=== PATIENT | male | born 1995 | race African-American/Black ===

== ENCOUNTER 2019-12-19 04:36 | Emergency (ER) | payer OTHER, SELFPAY ==
--- NOTE | ~2019-12-19 | XR_ITS ---
EXAMINATION: XR chest 2V DATE: 12/19/2019 04:59 INDICATION: Hemoptysis. TECHNIQUE: Frontal and lateral views of the chest were obtained. COMPARISON: None. FINDINGS: The chest demonstrates clear lungs without pneumonia, pleural effusion, or pneumothorax. Th e heart size is normal. IMPRESSION: 1. No acute cardiopulmonary disease. Reviewed, dictated and finalized at location A. [facility]
[2019-12-19 04:34] VITALS: BP 141/82; PULSE 71; RESP 18; TEMP 36.6; O2SAT 100
--- NOTE | 2019-12-19 04:51 | ED.GENADULT ---
HPI - General Adult General Chief complaint: Unspecified Stated complaint: COUGHING UP BLOOD History of Present Illness HPI narrative: Patient is a 24-year-old male who presents to the ER with concerns for coughing up blood. Reports this evening at work he started coughing up sputum that was streaked with blood twice. The blood was dark. Note was mixed with the sputum. He reports he has had intermittent epistaxis over the last couple weeks associate with sinus congestion mild sore throat. No fever/chills/sweats. Patient has history of MS and takes a steroid chronically, he is recently restarted his metformin couple weeks ago his blood sugar is running in the 400s at this time. He reports the lowest his blood sugars been in the last couple weeks is in the mid 200s. Otherwise he typically runs high. He does not follow-up with his primary care doctor for another month. Related Data Allergies Allergy/AdvReac Type Severity Reaction Status Date / Time No Known Allergies Allergy Verified 12/19/19 05:49 Review of Systems Review of Systems: All systems reviewed & are unremarkable except as noted in HPI and below Constitutional: Constitutional: Denies chills, Denies fever(s) and Denies weakness ENT: Reports epistaxis, Reports nasal congestion and Reports sore throat Cardiovascular: Cardiovascular: Denies chest pain Respiratory: Respiratory: Denies chest congestion, Reports cough and Denies dyspnea Gastrointestinal: Gastrointestinal: Denies abdominal pain, Denies nausea and Denies vomiting PMFSH Past Medical History Medical History (Updated 12/19/19 @ 05:49 by Gerry Foster MD) Diabetes type 2, uncontrolled Multiple sclerosis Surgical History Surgical History (Updated 12/19/19 @ 04:55 by Gerry Foster MD) No pertinent past surgical history Social History Social History (Updated 12/19/19 @ 04:56 by Gerry Foster MD) Smoking status: Current every day smoker Alcohol intake: current Exam Narrative: Exam Narrative: GENERAL: Well-appearing, well-nourished, and in no acute distress. HEAD: Normocephalic, atraumatic. ENT: Nares clear, no rhinorrhea or epistaxis. Mucous membranes moist. TMs normal bilaterally. NECK: Supple. CHEST: Clear to auscultation. No respiratory distress. HEART: Regular rate and rhythm. Normal peripheral pulses. EXTREMITIES: Normal range of motion. No edema. NEURO: Alert and oriented x3. PSYCH: Normal mood and affect. Course Vital Signs Vital signs: Vital Signs Temperature 97.8 F 12/19/19 04:34 Pulse Rate 71 12/19/19 04:34 Respiratory Rate 18 12/19/19 04:34 Blood Pressure 141/82 H 12/19/19 04:34 Pulse Oximetry 100 12/19/19 04:34 Temperature 97.8 F 12/19/19 04:34 Pulse Rate 71 12/19/19 04:34 Respiratory Rate 18 12/19/19 04:34 Blood Pressure 141/82 H 12/19/19 04:34 Pulse Oximetry 12/19/19 04:34 Medical Decision Making Vital Signs Vital Signs: Vital Signs Temperature 97.8 F 12/19/19 04:34 Pulse Rate 12/19/19 04:34 Respiratory Rate 18 12/19/19 04:34 Blood Pressure 141/82 H 12/19/19 04:34 Pulse Oximetry 12/19/19 04:34 Temperature 97.8 F 12/19/19 04:34 Pulse Rate 12/19/19 04:34 Respiratory Rate 18 12/19/19 04:34 Blood Pressure 141/82 H 12/19/19 04:34 Pulse Oximetry 12/19/19 04:34 Lab Data Result diagrams: 12/19/19 04:51 12/19/19 04:51 Labs: Lab Results 12/19/19 12/19/19 Range/Units 04:51 04:51 WBC 5.8 (4.5-10.0) K/mm3 RBC 4.66 (4.6-6.20) M/mm3 Hgb 13.4 L (14.0-18.0) g/dL Hct 40.6 L (42.0-52.0) % MCV 87.1 (80-100) fl MCH 28.8 (26-34) pg MCHC 33.0 (32-36) g/dl RDW 12.8 (11.5-14.5) % Plt Count 196 (150-375) k/mm3 MPV 12.5 H (7.4-10.4) fl Immature Gran % (Auto) 0.2 (0-0.5) % Neut % (Auto) 49.2 (45.5-73.1) % Lymph % (Auto) 39.7 (18.3-44.2) % [place] % (Auto) 8.8 H (2.6-8.5) % Eo
--- NOTE | 2019-12-19 04:56 | PC.NURSE ---
pt down to xray
[2019-12-19 05:03] LABS: Basophils Percent Auto 0.5 % (0.2-1.2); Eosinophils Absolute Auto 0.1 K/mm3 (0-0.3); Eosinophils Percent Auto 1.6 % (0-4.4); Hematocrit 40.6 % (42.0-52.0); Hemoglobin 13.4 g/dL (14.0-18.0); Immature Granulocyte Absolute 0.01 K/mm3 (0.00-0.031); Immature Granulocyte Percent A 0.2 % (0-0.5); Lymphocytes Percent Auto 39.7 % (18.3-44.2); Mean Corpuscular Hemoglobin 28.8 pg (26-34); Mean Corpuscular Volume 87.1 fl (80-100); Mean Platelet Volume 12.5 fl (7.4-10.4); Monocytes Absolute Auto 0.5 K/mm3 (0.1-0.6); Monocytes Percent Auto 8.8 % (2.6-8.5); Neutrophils Absolute Auto 2.9 K/mm3 (1.3-6.7); Neutrophils Percent Auto 49.2 % (45.5-73.1); Platelet Count Result 196 k/mm3 (150-375); Red Blood Count 4.66 M/mm3 (4.6-6.20); Red Cell Distribution Width 12.8 % (11.5-14.5); White Blood Count 5.8 K/mm3 (4.5-10.0)
[2019-12-19 05:21] LABS: Blood Urea Nitrogen 23 mg/dL (9-20); Calcium 8.7 mg/dL (8.4-10.2); Carbon Dioxide 23 mmol/L (22-30); Chloride 98 mmol/L (98-107); Estimated Glomerular Filt Rate > 60; Glucose 385 mg/dL (75-110); Potassium 4.3 mmol/L (3.4-5.0); Sodium 132 mmol/L (137-145)
[2019-12-19 06:00] VITALS: BP 138/98; PULSE 68; RESP 19; O2SAT 98
== END 2019-12-19 06:00 | disposition home or self-care (01) ==
PROVIDERS: Emergency Provider Emergency Medicine
DX: E11.65 Type 2 diabetes mellitus with hyperglycemia (principal); J06.9 Acute upper respiratory infection, unspecified; G35 Multiple sclerosis; F17.200 Nicotine dependence, unspecified, uncomplicated; Z79.84 Long term (current) use of oral hypoglycemic drugs
CPT/HCPCS: 36415; 71046; 80048; 82948; 85025; 99283

== ENCOUNTER 2024-12-17 05:47 | Emergency (ER) | payer OTHER, SELFPAY ==
[2024-12-17 05:50] VITALS: BP 101/79; PULSE 69; RESP 18; TEMP 36.4; O2SAT 100
--- OUTSIDE RECORDS SUMMARY | 2024-12-17 05:51 | XMS_ITS | Encounter Summary ---
Author Organization [facility] Care Team Providers Care Bow Maker Production Name Role Phone Mindi Smith MD Primary Care Provider Abril Winchester MD Primary Care Provider [phone] Mindi Smith MD Primary Care Provider Abril Winchester MD Primary Care Provider [phone] Encounter Details Date Type Department Care Team (Latest Contact Info) Description 09/10/2017 Orders Only [facility] CLINCONV ProviderArsalan MD [address] [place] [id number] Social History Tobacco Use Types Packs/Day Years Used Date Smoking Tobacco: Never Sex and Gender Information Value Date Recorded Sex Assigned at Not on file Legal Sex Male 8:44 PM TUBE WRAPPER Gender Identity Not on file Sexual Orientation Not on file documented as of this encounter Plan of Treatment Not on file documented as of this encounter Procedures Procedure Name Priority Date/Time Associated Diagnosis Comments AUDIOLOGY RECORD 09/10/2017 12:0 0 AM CDT documented in this encounter Results * AUDIOLOGY RECORD (09/10/2017 12:00 AM CDT) Narrative 09/10/2017 12:00 AM CDT Ordered by an unspecified provider. Historical Provider NURSING COMMUNICATION Fin al Result documented in this encounter Visit Diagnoses Not on filedocumented in this encounter Additional Health Concerns Infection Onset Date Last Indicated Resolved Time COVID: Suspected 08/14/2020 08/14/2020 08/14/2020 4:56 AM CDT Respiratory Infection (MARCUS), contact + droplet Comment:Automatically added due to negative COVID-19 result. 08/14/2020 08/14/2020 08/28/2020 3:0 5 AM CDT documented as of this encounter Care Teams Bow Maker Production Relationship Specialty Start Date End Date Mindi Smith MD [address] [place] [address] PCP - General 09/05/17 09/13/17 Abril Winchester MD [address] [place] [place] [address] PCP - General 09/14/17 09/20/17 Mindi Smith MD [address] [place] [address] PCP - General 09/21/17 11/14/17 Abril Winchester MD [address] [place] [place] [address] PCP - General 11/15/17 documented as of this encounter
--- OUTSIDE RECORDS SUMMARY | 2024-12-17 05:51 | XMS_ITS | Clinical Summary ---
Author Organization [facility] [employer] Address [address] [place] [address] Care Team Providers Care Gravity Manager Name Role Phone Louann Russ BENEFITS CONSULTANT-GREENSMAN Primary Care Provider + Source Comments [facility] [employer],non-owned Affiliates and Associated Physician Practices is amultiple site organization consisting of ambulatory clinics and hospital sitesin [place], [place], [place] and [place]. This disclosure is being madepursuant to the Care Everywhere program and may not contain all information available regarding this patient. Last updated 18.[facility] [employer] Allergies No known active allergies Medications * Be aware that medications may not be up to date on this document. Alwaysverify current medications with the patient. Medication Sig Dispensed Refills Start Date End Date Status metformin (GLUCOPHAGE) 500 MG tabletIndications:Diab etes mellitus with complication (HCC),Diabetes mellitus type 2 in obese (HCC) Take 1 Tab by mouth. Take 500 mg by mouth twice a day with food for 5 days, then increase to 1000 mg twice a day after that. 120 Tab 11 07/06/2010 Active Lancets (MICROLET) MISCIndications:Diabet es type 2, controlled (HCC) Use. Use to test blood sugar twice daily 1 Box 11 07/06/2010 Active glucose blood stripIndications:Diabe matilda type 2, controlled (HCC) Use 1 Strip. Use to test blood sugar twice daily 60 Strip 11 07/06/2010 Active Active Problems Problem Noted Date Diagnosed Date Diabetes type 2, controlled 07/06/2010 Social History Tobacco Use Types Packs/Day Years Used Date Smoking Tobacco: Never Alcohol Use Standard Drinks/Week Comments Not Asked 0 (1 standard drink = 0.6 oz pur e alcohol) Sex and Gender Information Value Date Recorded Sex Assigned at Not on file Gender Identity Not on file Sexual Orientation Not on file Last Filed Vital Signs Vital Sign Reading Time Taken Comments Blood Pressure 130/72 12/21/2010 10:16 AM ANALYTICS ASSOCIATE Pulse 74 12/21/2010 10:16 AM ANALYTICS ASSOCIATE Temperature - - Respiratory Rate 10 12/21/2010 10:1 6 AM ANALYTICS ASSOCIATE Oxygen Saturation - - Inhaled Oxygen Concentration - - Weight 176.4 kg (388 lb 14.3 oz) 2010 10:16 AM ANALYTICS ASSOCIATE Height 194.8 cm (6' 4.69 ) 12/21/2010 1 0:16 AM ANALYTICS ASSOCIATE Body Mass Index 46.49 12/21/2010 10:16 AM ANALYTICS ASSOCIATE Plan of Treatment Health Maintenance Due Date Last Done Comments HIV SCREENING 2008 HEPATITIS C SCREENING 04/09/2011 DTAP/TDAP/TD VACCINES (1 - Tdap) 2012 HEPATITIS B VACCINE (1 of 3 - 19+ 3-dose series) 2012 PNEUMOCOCCAL VACCINE (1 of 2 - PCV) 2012 COVID-19 VACCINE (1 - 2023-2 5 season) 2024 INFLUENZA VACCINE (#1) 2024 DEPRESSION SCREENING 11/12/2024 ZOSTER VACCINE (1 of 2) 2043 HIB VACCINE Aged Out No longer eligi ble based on patient's age to complete this topic HPV VACCINE Aged Out No longer eligi ble based on patient's age to complete this topic MENINGOCOCCAL (Group B) VACCINE Aged Out No longer eligible based on patient's age to complete this topic MENINGOCOCCAL VACCINE Aged Out No clement april eligible based on patient's age to complete this topic Care Teams Gravity Manager Relationship Specialty Start Date End Date Louann Russ APRN-CESAR [address] [place] [phone] PCP - General 06/29/10
--- OUTSIDE RECORDS SUMMARY | 2024-12-17 05:51 | XMS_ITS | Encounter Summary ---
Author Organization [facility] Address [address] [facility] [place] [address] Care Team Providers Care Key Filer Name Role Phone Louann Russ APRN-TRANSFER CONTROLLER Primary Care Provider + Encounter Details Date Type Department Care Team (Late st Contact Info) Description 07/15/[address] [facility] Care Pathology Lab [address] [place] [address] Mariya Bush MD [address] [place] [address] [address] Multiple sclerosis (HCC) Social History Tobacco Use Types Packs/Day Years [...] Procedure Name Priority Date/Time Associated Diagnosis Comments FLOW CYTOMETRY RITUXAN BLOOD Routine 07/15/2020 8:47 AM CDT Multiple sclerosis documented in this encounter Results * FLOW CYTOMETRY RITUXAN BLOOD (07/15/2020 8:47 AM CDT) Reason for test Multiple sclerosis 340 07/15/2020 1:40 PM CDT [facility] Client Specimen ID # [id number] 07/15/2020 1:40 PM CDT [facility] Number of Markers 7 07/15/2020 1:40 PM [facility] Flow Cytometry Results Differential Result Comment WBC Count /uL 6,500 % Lymphocytes 37 Lymphocyte Count u/L 2,405 Cell Region A: Lymphocytes Surface Marker Results % Absolute Count (cells/uL) CD3 85 2,044 CD3+CD4+ 36 866 CD3+CD8+ 48 1,154 CD4:CD8 Ratio 0.75 CD19 0 0 CD20 0 0 CD45 100 2,405 CD56 14 337 07/15/2020 1:40 PM [facility] Flow Cytometry Interpretation Testing is technical only and does not require an interpretation of results. 07/15/2020 1:40 PM [facility] Reference Range Adult Normal Reference Range Adult (> 18 years) CD3 54-84 % CD4 33-63 % CD8 12-39 % CD19 5-19 % CD56 6-26 % CD4+CD45RA+ 30-50 % CD4+CD45RO+ 17-42 % CD19+CD27+ 7-48 % CD19+CD27+IgD+ 7-29 % CD19+CD27+IgD- 3-23 % CD19+JY08-VoI+ 29-93 % % 07/15/2020 1:40 PM [facility] Disclaimer Test performed at [facility], [address] [place] [address], [id number]. This test was developed and its performance characteristics determined by the Flow Cytometry Laboratory. It has not been cleared by the [place] Food and Drug Administration (FDA). The FDA has determined that such clearance or approval is not necessary. This test is used for clinical purposes. It should not be regarded as investigational or for research. This laboratory is regulated under the Clinical Laboratory Improvement Amendments of 1998 (CLIA) as a qualified to perform high complexity clinical testing. By law [place], CD4 lymphocyte counts on patients with HIV infection must be reported by the physician to the [facility] authority. 07/15/2020 1:40 PM [facility] Embedded Images 0 1:40 PM [facility] Blood BLOOD SPECIMEN / Unknown 07/15/2020 8:47 AM CDT 07/15/2020 10:25 AM CDT Mariya Bush MD LAB - PATHOLOGY/CYTO LOGY ORDERABLES [facility] [address] [phone] documented in this encounter Visit Diagnoses Diagnosis Multiple sclerosis (HCC) Multiple sclerosis documented in this encounter Care Teams Key Filer Relationship Specialty Start Date End Date Louann Russ APRN-CESAR [address] [place] [phone] PCP - General 06/29/10 documented as of this encounter
--- OUTSIDE RECORDS SUMMARY | 2024-12-17 05:51 | XMS_ITS | Encounter Summary ---
Author Organization [facility] Address [address] [place] [address] Care Team Providers Care Set Up Technician Name Role Phone None, Provider MD Primary Care Provider Penelope walters Non-Staff, Provider Primary Care Provider Alyse juarez Encounter Details Date Type Department Care Team (Late st Contact Info) Description 08/29/2023 [employer] Message Enc [facility] Multispecialty Care - [facility] [address] [facility], [address] [place] [address] Benji Brennan MD [address] [place] [address] MRI Social History Tobacco Use Types Packs/Day Years Used Date Smoking Tobacco: Former Cigarettes 0.3 11 0 12/2008 - 12/2019 Smokeless Tobacco: Former Comments:Patient reports occ asional Alcohol Use Standard Drinks/Week Comments Yes 0 (1 standard drink = 0.6 oz pur e alcohol) social PHQ-2 Answer Date Recorded Patient Health Questionnaire-2 Score 0 05/18/2023 Sex and Gender Information Value Date Recorded Sex Assigned at Not on file Legal Sex Male 9:31 PM CDT Gender Identity Not on file Sexual Orientation Not on file documented as of this encounter Functional Status * RETIRED Are you deaf or do you have serious difficulty hearing Answer Date of Assessment Author Status No 02/07/2019 3:46 PM CDT Activ e * RETIRED Are you blind or do you have serious difficulty seeing, even when wearing glasses? Answer Date of Assessment Author Status No 02/07/2019 3:46 PM CDT Activ e * Do you have serious difficulty walking or climbing stairs? Answer Date of Assessment Author Status No 02/07/2019 3:46 PM CDT Riccardo Masters R N Active * Do you have difficulty dressing or bathing? Answer Date of Assessment Author Status No 02/07/2019 3:46 PM CDT Riccardo Masters R N Active * Because of a physical, mental, or emotional condition, do you have difficulty doing errands alone such as visiting a doctor's office or shopping? Answer Date of Assessment Author Status No 02/07/2019 3:46 PM CDT Riccardo Masters R N Active documented as of this encounter Mental Status * Because of a physical, mental, or emotional condition, do you have serious difficulty concentrating, remembering, or making decisions? Answer Entry Date Author Status No 02/07/2019 3:46 PM CDT Riccardo Masters R N Active documented in this encounter Plan of Treatment Upcoming Encounters Date Type Department Care Team (Late st Contact Info) Description 03/09/2025 8:00 AM CDT Treatment [facility] [place] [address] Benji Brennan MD [address] [place] [id number] 05/05/2025 7:40 AM CDT Telemedicine [facility] Multispecialty Care - [address], [address] [place] [address] Benji Brennan MD [address] [place] [address] documented as of this encounter Visit Diagnoses Not on filedocumented in this encounter Additional Health Concerns Infection Onset Date Last Indicated Resolved Time COVID-19 Rule Out 09/23/2024 09/23/2024 09/24/2024 12:30 AM VACATION GUIDE MRSA Comment:10/20/24 +MRSA Left finger 10/20/2024 10/20/2024 Assessment Noted Time PHQ-9 Depression Total Score: 27 02/06/2 023 9:56 AM CDT documented as of this encounter Care Teams Set Up Technician Relationship Specialty Start Date End Date None, Provider, MD PCP - General UNKNOWN PHYSICIAN SPECIALTY 03/05/23 04/16/24 Non-Staff, Provider PCP - General UNKNOWN PHYSICIAN SPECIALTY 04/17/24 documented as of this encounter
--- OUTSIDE RECORDS SUMMARY | 2024-12-17 05:51 | XMS_ITS | Encounter Summary ---
Author Organization [facility] Address [address] [place] [address] Care Team Providers Care Reference Archivist Name Role Phone None, Provider MD Primary Care Provider Penelope waletrs Non-Staff, Provider Primary Care Provider Alyse juarez Encounter Details Date Type Department Care Team (Late st Contact Info) Description 02/08/2023 MyChart Message Enc [facility] Multispecialty Care - [address], [address] [place] [address] Benji Brennan MD [address] [place] [address] MRI Social History Tobacco Use Types Packs/Day Years Used Date Smoking Tobacco: Some Days Cigarettes 0.3 11 Started: 12/2008; Last attempted to quit: 12/2019 Smokeless Tobacco: Never Comments:Patient reports occ asional Alcohol Use Standard Drinks/Week Comments Yes 0 (1 standard drink = 0.6 oz pur e alcohol) social PHQ-2 Answer Date Recorded Patient Health Questionnaire-2 Score 6 02/06/2023 Sex and Gender Information Value Date Recorded Sex Assigned at Not on file Legal Sex Male 9:31 PM CDT Gender Identity Not on file Sexual Orientation Not on file COVID-19 Exposure Response Date Recorded In the last 10 days, have yo u been in contact with someone who was confirmed or suspected to have Coronavirus/COVID-19? No / Unsure 02/06/2023 9:41 AM CDT documented as of this encounter Functional Status [...] Info) Description 03/09/2025 8:00 AM CDT Treatment [facility] [place] [address] Benji Brennan MD [address] [place] [address] 05/05/2025 7:40 AM CDT Telemedicine [facility] Multispecialty Care - [address], [address] [place] [address] Benji Brennan MD [address] [place] [address] documented as of this encounter Visit Diagnoses Not on filedocumented in this encounter Additional Health Concerns Infection Onset Date Last Indicated Resolved Time COVID-19 Rule Out 03/27/2023 03/27/2023 03/27/2023 5:24 PM CDT COVID-19 Rule Out 09/23/2024 09/23/2024 09/24/2024 12:30 AM BUILDING TECH MRSA Comment:10/20/24 +MRSA Left finger 10/20/2024 10/20/2024 Assessment Noted Time PHQ-9 Depression Total Score: 27 02/06/2 023 9:56 AM CDT documented as of this encounter Care Teams Reference Archivist Relationship Specialty Start Date End Date None, Provider, MD PCP - General UNKNOWN PHYSICIAN SPECIALTY 03/05/23 04/16/24 Non-Staff, Provider PCP - General UNKNOWN PHYSICIAN SPECIALTY 04/17/24 documented as of this encounter
--- OUTSIDE RECORDS SUMMARY | 2024-12-17 05:51 | XMS_ITS | Clinical Summary ---
Author Organization [facility] Address [address] [place] [address] Phone Care Team Providers Care Electro Plater Name Role Phone Abril Winchester MD Primary Care Provider [phone] Allergies No known active allergies Medications aspirin 81 mg tablet daily. 7 Active metoprolol XL (TOPROL-XL) 25 mg 24 hr tablet daily. 8 Active docusate sodium (COLACE) 100 mg capsuleIndicat ions:constipat ion Take 2 capsules (200 mg total) by mouth 2 (two) times a day. 120 capsule 11 8 Active Additional Information Patient not taking.Reported on 09/12/2024 sertraline (ZOLOFT) 100 mg tablet Take 1 tablet (100 mg total) by mouth daily. 30 tablet 3 9 Active Additional Information Patient not taking.Reported on 09/12/2024 acetaminophen (TylenoL) 325 mg tabletIndicati ons:PRE MED 30 MINUTES PRIOR TO INFUSION Take 650 mg by mouth operational risk analyst. Active diphenhydrAMIN E (BenadryL) 25 mg capsuleIndicat ions:PRE MED 30 MINUTES PRIOR TO INFUSION Take 2 tablet/capsule (50 mg total) by mouth operational risk analyst Active methylPREDNISo lone sodium succinate (SOLU-medrol) 125 mg injectionIndic ations:PRE MED-30 MINUTES PRIOR TO INFUSION Infuse 125 mg into a venous catheter operational risk analyst. Active ocrelizumab (OCREVUS IV)Indications :MS Infuse 600 mg into a venous catheter every 6 (six) months. MIXED IN 500CC/NS INFUSE AT: STEP 1-40ML/HR FOR 20 ML STEP 2-80 ML/HR FOR 40 ML STEP 3-120 ML/HR FOR 60 ML STEP 4-160 ML/HR FOR 80 ML STEP 5-200 ML/HR FOR 100 ML STEP 6-240 ML/HR FOR 120 ML STEP 7-280 ML/HR FOR 280 ML Active sodium chloride 0.9 %, flush, (NORMAL SALINE FLUSH INJ)Indication s:LINE PATENCY Infuse 10 mL into a venous catheter as needed (LINE PATENCY). Active ARIPiprazole (ABILIFY) 5 mg tablet Take 1 tablet (5 mg total) by mouth nightly 4 Active buPROPion XL (WELLBUTRIN XL) 300 mg 24 hr tablet Take 1 tablet (300 mg total) by mouth daily Active HYDROcodone-ac etaminophen (NORCO) 5-325 mg per tablet Take 1 tablet by mouth every 6 (six) hours as needed 4 Active hydrOXYzine (ATARAX) 10 mg tablet TAKE 1 TABLET BY MOUTH THREE TIMES DAILY DIRECTED 4 Active ibuprofen (ADVIL,MOTRIN) 600 mg tablet Take 1 tablet (600 mg total) by mouth every 6 (six) hours as needed 4 Active SEMGLEE-yfgn 100 unit/mL (3 mL) pen for injection INJECT 10 UNITS SUBCUTANEOUSLY NIGHTLY AT BEDTIME 3 Active lidocaine (ASPERCREME) 4 % adhesive patch,medicate d Place 1 patch on the skin daily 4 Active naltrexone (DEPADE) 50 mg tablet Take 1 tablet (50 mg total) by mouth daily 0 Active pen needle, diabetic 31 gauge x 3/16 needle Use daily with semglee 3 Active rosuvastatin (CRESTOR) 40 mg tablet Take 1 tablet (40 mg total) by mouth daily 4 Active traZODone (DESYREL) 50 mg tablet Take 1 tablet (50 mg total) by mouth daily 0 Active cholecalcifero l (VITAMIN D-3) 2000 unit capsule every 8 hours Active metFORMIN (GLUCOPHAGE) 1,000 mg tablet Take 1 tablet (1,000 mg total) by mouth 2 (two) times a day with meals 1 tab po bid 180 tablet 3 4 Active tirzepatide (Mounjaro) 2.5 mg/0.5 mL pen injectorIndica tions:Type 2 diabetes mellitus with hyperglycemia, with long-term current use of insulin (HCC) Inject 0.5 mL (2.5 mg total) under the skin once a week 2 mL 6 4 Active Active Problems Problem Noted Date Diagnosed Date Severe obesity 09/12/2024 Abnormal MRI 05/06/2019 Vitamin D deficiency 05/06/2019 High risk medication use 01/07/2019 Recurrent major depressive disorder, in partial remission 01/07/2019 Ataxia 09/18/2018 Multiple sclerosis 04/24/2018 Autoimmune hepatitis (CMS/HCC) 02/14/2018 Tachycardia 02/14/2018 High risk medications (not anticoagulants) long- term use 11/13/2017 Multiple sclerosis 09/24/2017 Muscle spasticity 09/14/2017 Weakness of left side of body 09/14/2017 Hyperlipidemia 09/14/2017 Hypertension 09/14/2017 Abnormal gait 09/14/2017 Obesity 09/14/2017 Dyslipidemia 09/10/2017 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 Jim as whether he has type I or type II diabetes is not entirely clear, did not follow through. Was referred for sleep study, could not be contacted to arrange this. Type 2 diabetes mellitus without complication (C MS/HCC) 02/09/2016 Hyperlipidemia 02/09/2016 Hypertension 02/09/2016 Obesity 02/09/2016 Diabetes mellitus 08/22/2013 Medical History Medical History Date Comments Anxiety disorder Anxiety - (Adde d by TW Conv) Personal history of other me ntal and behavioral disorders History of depression - (Add ed by OTILIO Conv) Anxiety Depression Hyperlipidemia Hypertension Diabetes mellitus (HCC) Sleep apnea Vitamin D deficiency 05/06/2019 Family History Medical History Relation Name Comments Multiple sclerosis Brother age 24; (Added by OTILIO [place] onv) Family history of multiple sclerosis - Diagnosed Diabetes Other Diabetes Mellit us - (Added by OTILIO Conv) Relation Name Status Comments Brother age 24; (Added by OTILIO Conv) Other Social History Tobacco Use Types Packs/Day Years Used Date Smoking Tobacco: Former Smokeless Tobacco: Never Tobacco Cessation:Counseling Given: Not Answered Alcohol Use Standard Drinks/Week Comments Yes 0 (1 standard drink = 0.6 oz pur e alcohol) occasional Sex and Gender Information Value Date Recorded Sex Assigned at Not on file 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 Gender Identity Not on file Sexual Orientation Not on file Obstetrics History Last Filed Vital Signs Vital Sign Reading Time Taken Comments Blood Pressure 120/80 09/12/2024 8:32 AM CDT Pulse 88 08/13/2020 11:36 PM CDT Temperature 36.8 ??C (98.3 ??F) 08/13/2020 1 1:36 PM CDT Respiratory Rate 18 12/26/2018 2:30 PM METALLOGRAPHY TEACHER Oxygen Saturation 96% 08/13/2020 11: 36 PM CDT Inhaled Oxygen Concentration - - Weight 139.6 kg (307 lb 12.8 oz) 09/12/2024 8:32 AM CDT Height 198.1 cm (6' 6 ) 09/12/2024 8:32 AM CDT Body Mass Index 35.57 09/12/2024 8:32 AM CDT Plan of Treatment Health Maintenance Due Date Last Done Comments Albumin Creatinine Ratio, Urine 1993 Depression Screening 1993 eGFR 1993 Foot Exam 1993 Varicella Vaccines (1 of 2 - 13+ 2-dose series) 10/22/2008 Regular Well Visit/Exam 18-64 2011 Pneumococcal vaccine <65 (2 of 2 - PCV) 07/29/2022 07/29/2021, 10/26/2017, 10/11/2015 Covid-19 Vaccine (3 - 2023- season) 2024 04/25/2021, 04/04/2021 Lipid Panel 03/04/2025 03/04/2024, 11/12, 02/08/2018, Additional history exists Hemoglobin A1C 03/12/2025 09/12/2024, 01/2017, 11/28/2016, Additional history exists Dilated Eye Exam 07/14/2025 07/14/2024 DTaP/Tdap/Td Vaccine (7 - Td or Tdap) 02/05/2029 02/05/2019, 04/28/2018, 12/07/2017, Additional history exists Hepatitis C Screening Completed 09/14/2017 Influenza Vaccine Completed 07/26/2024, , 07/29/2021, Additional history exists HPV Vaccines Aged Out No longer eligi ble based on patient's age to complete this topic Procedures Procedure Name Priority Date/Time Associated Diagnosis Comments POCT HEMOGLOBIN A1C Routine 09/12/2024 8 :35 AM CDT Type 2 diabetes mellitus with hyperglycemia, with long-term current use of insulin (HCC) LIPID PANEL Routine 03/04/2024 HEPATITIS PANEL, ACUTE After X-Ray 09/14/2017 8:48 PM CDT from Last 3 Months or Most Recently Relevant to Health Maintenance Results * (ABNORMAL) POCT hemoglobin A1c (09/12/2024 8:35 AM CDT) Hemoglobin A1C, POC 8.5 4.0 - 5.6 % Blood 09/12/2024 8:35 AM CDT Yuki Castellanos DO POINT OF CARE TEST ORDERABL ES Final Result * (ABNORMAL) Lipid panel (03/04/2024) SCRIBED Cholesterol, Total 218(A) 0 - 200 EXTERNAL LAB SCRIBED HDL 43(A) >or= - 40 EXTERNAL LAB SCRIBED LDL 147(A) 0 - 100 EXTERNAL LAB SCRIBED Triglycerides 149 0 - 150 EXTERNAL LAB Blood 03/04/2024 Historical Provider LAB BLOOD ORDERABLES Shae l Result EXTERNAL LAB * Hepatitis panel, acute (09/14/2017 8:48 PM CDT) Hep A IgM Nonreactive Nonreactive [facility] Comment: Interpretive Data If test is reported as GRAYZONE, new sample should be drawn in two weeks for testing. Current interpretive data was last revised on 2016. Hep B core IgM Nonreactive Nonreactive [facility] Comment: Interpretive Data If test is reported as GRAYZONE, new sample should be drawn for testing. Current interpretive data was last revised on 2016. Hep C Ab Nonreactive Nonreactive [facility] Comment: Interpretive Data Positive and greyzone results should be confirmed by a molecular method. If positive or greyzone, a second separately collected sample should be submitted for Hepatitis C Virus RNA. Detection and Quantitation by Real-Time Reverse Wire Galvanizer-PCR.Current Interpretive data was last revised on 2017. HepBsAg Nonreactive Nonreactive [facility] Blood specimen (specimen) 09/14/2017 8:48 PM CDT 09/14/2017 9:03 PM CDT Donavan Borja MD PhD LAB MICROBIOLOGY - GENE RAL ORDERABLES Edited Result - Final [facility] [place] [address] from Last 3 Months or Most Recently Relevant to Health Maintenance Insurance [facility] [employer]ICE PLUS [facility] H[employer]/PPO Address: [address] [address] [place] [address] [employer] Care Teams Electro Plater Relationship Specialty Start Date End Date Abril Winchester MD [address] [place] [address] PCP - General 11/15/17
--- OUTSIDE RECORDS SUMMARY | 2024-12-17 05:51 | XMS_ITS | Encounter Summary ---
Author Organization [facility] Address [address] [place] [address] Care Team Providers Care Feed In Worker Name Role Phone Ary Conner DO Primary Care Provider [phone] None, Provider Primary Care Provider Unavaila selena Non-Staff, Provider Primary Care Provider Alyse juarez Encounter Details Date Type Department Care Team (Late st Contact Info) Description 02/06/2023 Therapy Plan [facility] [place] [address] Benji Brennan MD [address] [place] [address] Social History Tobacco Use Types Packs/Day Years [...] Info) Description 03/09/2025 8:00 AM CDT Treatment [facility] [place] [address] Benji Brennan MD [address] [place] [address] 05/05/2025 7:40 AM CDT Telemedicine [facility] Multispecialty Care - [address], [address] [place] [address] Benji Brennan MD [address] [place] [address] documented as of this encounter Visit Diagnoses Diagnosis Relapsing remitting multiple sclerosis ([facility])- Primary Multiple sclerosis MS (multiple sclerosis) ([facility]) Multiple sclerosis MS (multiple sclerosis) ([facility])- Primary Multiple sclerosis documented in this encounter Additional Health Concerns Infection Onset Date Last Indicated Resolved Time COVID-19 Rule Out 03/27/2023 03/27/2023 03/27/2023 5:24 PM CDT COVID-19 Rule Out 09/23/2024 09/23/2024 09/24/2024 12:30 AM HUMAN SERVICES PROGRAM SPECIALIST MRSA Comment:10/20/24 +MRSA Left finger 10/20/2024 10/20/2024 Assessment Noted Time PHQ-9 Depression Total Score: 27 023 9:56 AM CDT documented as of this encounter Care Teams Feed In Worker Relationship Specialty Start Date End Date Ary Conner DO [address] [place] [id number] PCP - General FAMILY PRACTICE 12/07/22 02/06/23 None, Provider, MD PCP - General UNKNOWN PHYSICIAN SPECIALTY 03/05/23 04/16/24 Non-Staff, Provider PCP - General UNKNOWN PHYSICIAN SPECIALTY 04/17/24 documented as of this encounter
--- OUTSIDE RECORDS SUMMARY | 2024-12-17 05:51 | XMS_ITS | Encounter Summary ---
Author Organization [facility] Address [address] [place] [address] Care Team Providers Care Riveter Name Role Phone None, Provider MD Primary Care Provider Penelope walters Non-Staff, Provider Primary Care Provider Alyse juarez Encounter Details Date Type Department Care Team (Late st Contact Info) Description 02/27/2023 MyChart Message Enc [facility] Multispecialty Care - [address], [address] [place] [address] Benji Brennan MD [address] [place] [address] MRI Social History Tobacco Use Types Packs/Day [...] Info) Description 03/09/2025 8:00 AM CDT Treatment [facility] [place] [address] Benji Brennan MD [address] [place] [address] 05/05/2025 7:40 AM CDT Telemedicine [facility] Multispecialty Care - [address], [address] [place] [address] Benji Brennan MD [address] [place] [address] documented as of this encounter Visit Diagnoses Not on filedocumented in this encounter Additional Health Concerns Infection Onset Date Last Indicated Resolved Time COVID-19 Rule Out 03/27/2023 03/27/2023 03/27/2023 5:24 PM CDT COVID-19 Rule Out 09/23/2024 09/23/2024 09/24/2024 12:30 AM CHIEF CONTROLLER STATION MRSA Comment:10/20/24 +MRSA Left finger 10/20/2024 10/20/2024 Assessment Noted Time PHQ-9 Depression Total Score: 27 02/06/2 023 9:56 AM CDT documented as of this encounter Care Teams Riveter Relationship Specialty Start Date End Date None, Provider, MD PCP - General UNKNOWN PHYSICIAN SPECIALTY 03/05/23 04/16/24 Non-Staff, Provider PCP - General UNKNOWN PHYSICIAN SPECIALTY 04/17/24 documented as of this encounter
--- OUTSIDE RECORDS SUMMARY | 2024-12-17 05:51 | XMS_ITS | Encounter Summary ---
Author Organization [facility] Address [address] [place] [address] Care Team Providers Care Manager Athletics Name Role Phone None, Provider MD Primary Care Provider Penelope walters Non-Staff, Provider Primary Care Provider Alyse juarez Encounter Details Date Type Department Care Team (Late st Contact Info) Description 02/28/2024 Therapy Plan [facility] [place] [address] Benji Brennan MD [address] [place], [place] [address] Social History Tobacco Use Types Packs/Day Years [...] Info) Description 03/09/2025 8:00 AM CDT Treatment [facility] [place] [address] Benji Brennan MD [address] [place] [address] 05/05/2025 7:40 AM CDT Telemedicine [facility] Medical [facility] Multispecialty Care - [address], [address] [place] [address] Benji Brennan MD [address] [place] [address] documented as of this encounter Visit Diagnoses Not on filedocumented in this encounter Additional Health Concerns Infection Onset Date Last Indicated Resolved Time COVID-19 Rule Out 09/23/2024 09/23/2024 09/24/2024 12:30 AM CLOUD ENGAGEMENT PARTNER MRSA Comment:10/20/24 +MRSA Left finger 10/20/2024 10/20/2024 Assessment Noted Time PHQ-9 Depression Total Score: 27 02/06/ 023 9:56 AM CDT documented as of this encounter Care Teams Manager Athletics Relationship Specialty Start Date End Date None, Provider, MD PCP - General UNKNOWN PHYSICIAN SPECIALTY 03/05/23 04/16/24 Non-Staff, Provider PCP - General UNKNOWN PHYSICIAN SPECIALTY 04/17/24 documented as of this encounter
--- OUTSIDE RECORDS SUMMARY | 2024-12-17 05:51 | XMS_ITS | Clinical Summary ---
Author Organization [facility] System Address [address] [place] [id number] Care Team Providers Care Yarding Supervisor Name Role Phone Non-Staff, Provider Primary Care Provider Unavai lable Allergies No known active allergies Medications traZODone 50 MG tabletIndicatio ns:Insomnia, unspecified type Take 1 tablet (50 mg total) by mouth nightly at bedtime. at bedtime. 90 tablet 3 08/05/20 20 Active Additional Information Patient taking differently:50 mg Oral Nightly at bedtime,(No instructions reported), Reported on 02/06/2023 naltrexone 50 MG tablet Take 1 tablet (50 mg total) by mouth daily. MEDICATION FILLED AT SAME TIME BUPROPION BUT PT DOES NOT REMEMBER THIS MEDICATION; CONFIRMED FROM PHARMACY THAT MED WAS PICKED UP WITH THE BUPROPION. 08/24/20 20 Active metFORMIN 1000 MG tabletIndicatio ns:Type 2 diabetes mellitus without complication, without long-term current use of insulin (CMS/[facility] HHS/HCC) Take 1 tablet (1,000 mg total) by mouth 2 (two) times daily with meals. 180 tablet 1 10/21/20 20 Active Cholecalciferol (VITAMIN D3) 50 MCG (2000 UT) Cap every 8 (eight) hours. Active buPROPion XL 300 MG 24 hr tablet Take 1 tablet (300 mg total) by mouth every morning. FOR 14 DAYS 10/21/20 20 Active Insulin Pen Needle (PEN NEEDLES) 32G X 6 MM MiscIndications :Type 2 diabetes mellitus without complication, without long-term current use of insulin (CMS/HCC HHS/HCC) 1 Device by Does not apply route nightly. 90 each 3 07/29/20 21 Active SEMGLEE, YFGN, 100 UNIT/ML Solution Pen-injector INJECT 10 UNITS SUBCUTANEOUSLY NIGHTLY AT BEDTIME 11/21/19 23 Active rosuvastatin (CRESTOR) 40 MG tablet Take 1 tablet (40 mg total) by mouth daily. 03/04/20 24 Active lidocaine (LIDO CAPRI) 4 % patch Place 1 patch onto the skin daily. Remove & Discard patch within 12 hours or as directed by 30 patch 07/09/20 24 Active Active Problems Problem Noted Date Diagnosed Date Relapsing remitting multiple sclerosis ([facility]) 02/06/2023 Class 2 severe obesity due t o excess calories with serious comorbidity and body mass index (BMI) of 35.0 to 35.9 in adult ([facility]) 07/29/2021 Ataxia 12/02/2019 Vitamin D deficiency 05/06/2019 Type 2 diabetes mellitus ([facility]) 02/05 Essential hypertension 02/05/2019 Suicide attempt ([facility]) 02/05/2019 Recurrent major depressive disorder, in partial remission 01/07/2019 Dyslipidemia 09/10/2017 Postural orthostatic tachycardia syndrome 2016 Microalbuminuria 11/14/2016 Overview (07/26/2021): x 2 History of suicide attempt 08/08/2016 Overview (07/26/2021): With Celexa Noncompliance 02/09/2016 Overview (07/26/2021): Was referred to Dr. Jim as whether he has type I or type II diabetes is not entirely clear, did not follow through. Was referred for sleep study, could not be contacted to arrange this. Optic neuritis MS (multiple sclerosis) ([facility]) Depression ALINA (obstructive sleep apnea) Resolved Problems Problem Noted Date Diagnosed Date Resolved Date Obesity 02/09/2016 07/29/2021 Encounters Date Type Department Care Team Description 12/02/2024 8:00 AM NETWORK STRATEGIST Telemedicine [facility] Multispecialty Care - [facility] [address], [address] [place] [address] Benji Brennan MD Numbness 12/02/2024 Telephone [facility] [place] [address] [place] [phone] Benji Brennan MD Follow Up Call 12/02/2024 Travel 10/20/2024 5:12 PM NETWORK STRATEGIST - 10/20/2024 6:13 PM NETWORK STRATEGIST Hospital Encounter [facility] [address] [place] [address] Lizz Barber FNP Derm Problem Discharge Disposition: Home or Self Care (Routine Discharge) 10/20/2024 Travel 09/23/2024 11:16 PM NETWORK STRATEGIST - 09/24/2024 1:46 AM NETWORK STRATEGIST Emergency [facility] [place] [address] Bisi Maria MD Dizziness Discharge Disposition: Home or Self Care (Routine Discharge) 09/23/2024 Travel from Last 3 Months Immunizations Name Administration Dates Next Due Dtp 12/28/1994,03/10/1994 Flumist (Intranasal) 09/24/2008 Fluzone 6 Months+ Quad (0.5 mL Prefilled Syringe) 07/29/2021,11/20/2019 Hepatitis B Pediatric 08/27/2003 Hib (Generic) 12/28/1994,03/10/1994 Influenza Adult (Generic) 11/20/2019,10/11/2015, 10/08/2013 MMR 12/28/1994 Opv 12/28/1994,03/10/1994 PFIZER COVID-19 (ORIGINAL FO RMULATION, PURPLE CAP) mRNA, LNP-S, PF, 30 MCG/0.3 ML DOSE 04/25/2021,04/04/2021 Pneumococcal (Pneumovax 23) 07/29/2021, 5 Polio Opv (Generic) 12/28/1994,03/10/1994 Tdap (Boostrix) 02/05/2019,04/28/2018,09/24/2008 Family History Medical History Relation Comments Diabetes Father Hypertension Father Cancer Mother Diabetes Mother Hypertension Mother Relation Status Comments Father Alive Mother Alive Social History Tobacco Use Types Packs/Day Years Used Date Smoking Tobacco: Former Cigarettes 0.3 11 0 12/2008 - 12/2019 Smokeless Tobacco: Former Tobacco Cessation:Counseling Given: Yes Comments:Patient reports occasional Alcohol Use Standard Drinks/Week Comments Not Currently 0 (1 standard drink = 0.6 oz pur e alcohol) social PHQ-2 Answer Date Recorded Patient Health Questionnaire-2 Score 4 07/29/2024 Sex and Gender Information Value Date Recorded Sex Assigned at Not on file Legal Sex Male 9:31 PM CDT Gender Identity Not on file Sexual Orientation Not on file Last Filed Vital Signs Vital Sign Reading Time Taken Comments Blood Pressure 139/96 10/20/2024 5:17 PM NETWORK STRATEGIST Pulse 79 10/20/2024 5:17 PM NETWORK STRATEGIST Temperature 37.2 ??C (98.9 ??F) 10/20/2024 5:17 PM CS T Respiratory Rate 16 10/20/2024 5:17 PM NETWORK STRATEGIST Oxygen Saturation 100% 10/20/2024 5:17 PM NETWORK STRATEGIST Inhaled Oxygen Concentration - - Weight 140.6 kg (310 lb) 10/20/2024 5:17 PM NETWORK STRATEGIST Height 198.1 cm (6' 6 ) 10/20/2024 5:17 PM NETWORK STRATEGIST Body Mass Index 35.82 10/20/2024 5:17 PM NETWORK STRATEGIST Plan of Treatment Upcoming Encounters Date Type Department Care Team (Late st Contact Info) Description 03/09/2025 8:00 AM CDT Treatment [facility] [place] [address] Benji Brennan MD [address] [place] [phone] 05/05/2025 7:40 AM CDT Telemedicine [facility] Multispecialty Care - [address], [address] [place] [address] Benji Brennan MD [address] [place] [address] Health Maintenance Due Date Last Done Comments Kidney Health Evaluation 1993 Annual Physical 1996 Hepatitis B Vaccines (2 of 3 - 3-dose series) 09/24/2003 08/27/2003 Diabetes: Retinopathy Eye Exam 2011 Lipid Panel 11/21/2020 11/21/2019 Pneumococcal Vaccine: Pediatrics (0 to 5 Years) and At-Risk Patients (6 to 64 Years) (2 of 2 - PCV) 07/29/2022 07/29/2021, 10/11/2015 Hemoglobin A1C 06/03/2024 03/04/2024, 09/13, 03/12/2023, Additional history exists COVID-19 Vaccine ( season) 2024 04/25/2021, 04/04/2021 Influenza Adult (#1) 2024 07/29/2021, 11/20/2019, 11/20/2019, Additional history exists PHQ-2 (Physician [facility] [place]) 11/12/2024 07/29/2024 DTaP, Tdap and Td Vaccines (4 - Td or Tdap) 02/05/2029 02/05/2019, 04/28/2018, 09/24/2008, Additional history exists Hepatitis C Completed 11/19/2023, 01/11, 10/12/2015 HPV Vaccines Aged Out No longer eligi ble based on patient's age to complete this topic Meningococcal B Vaccine Aged Out No l onger eligible based on patient's age to complete this topic Meningococcal Vaccine Aged Out No clement april eligible based on patient's age to complete this topic RSV Immunizations Under 20 Months Aged Out No longer eligible based on patient's age to complete this topic Procedures Procedure Name Priority Date/Time Associated Diagnosis Comments INCISION AND DRAINAGE Routine 10/20/2024 6:13 PM NETWORK STRATEGIST HC BODY FLUID CULTURE STAT 10/20/2024 6:05 PM NETWORK STRATEGIST INFLUENZA A & B STAT 09/23/2024 11:37 PM NETWORK STRATEGIST CORONAVIRUS (COVID 19) STAT 11:37 PM NETWORK STRATEGIST TSH W/REFLEX STAT 09/23/2024 11:37 PM NETWORK STRATEGIST MAGNESIUM STAT 09/23/2024 11:37 PM NETWORK STRATEGIST TROPONIN, QUANT STAT 09/23/2024 11:37 PM NETWORK STRATEGIST COMPREHENSIVE METABOLIC PANEL STAT 09/23/2024 11:37 PM NETWORK STRATEGIST CBC W/DIFF AUTOMATED STAT 09/23/2024 11:37 PM NETWORK STRATEGIST ECG 12-LEAD Routine 09/23/2024 11:25 PM NETWORK STRATEGIST HEPATITIS C ANTIBODY Routine 11/19/2023 10:23 AM NETWORK STRATEGIST MS (multiple sclerosis) (CMS/HCC HHS/HCC) OUTSIDE LAB (SCAN ORDER) Routine 02/13/2023 LIPID PANEL Routine 11/21/2019 9:54 AM NETWORK STRATEGIST Type 2 diabetes mellitus without complication, without long-term current use of insulin (CMS/HCC HHS/HCC) from Last 3 Months or Most Recently Relevant to Health Maintenance Results * Incision/Drainage (10/20/2024 6:13 PM NETWORK STRATEGIST) Narrative Nicky Novoa MD - 10/20/2024 6:13 PM NETWORK STRATEGIST JANN Macedo ? 10/20/2024 ??6:16 PM Incision/Drainage Date/Time: 10/20/2024 6:13 PM Performed by: JANN Macedo Authorized by: JANN Macedo ?? Consent: ??Consent obtained: ??Verbal ??Consent given by: ??Patient ??Risks discussed: ??Bleeding, incomplete drainage and pain [facility] protocol: ??Patient identity confirmed: ??Verbally with patient Location: ??Type: ??Bulla ??Size: ??2cm X 1 cm ??Location: ??Upper extremity ??Upper extremity location: ??Finger ??Finger location: ??L index finger Pre-procedure details: ??Skin preparation: ??Povidone-iodine Anesthesia: ??Anesthesia method: ??None Procedure type: ??Complexity: ??Simple Procedure details: ??Incision types: ??Stab incision (21 guage) ??Incision depth: ??Dermal ??Drainage: ??Serosanguinous, purulent and serous ??Drainage amount: ??Copious ??Wound treatment: ??Wound left open Post-procedure details: ??Procedure completion: ??Tolerated Comments: ?? Covered with sterile dressing. Lizz Barber SIDE LASTER TACK PROCEDURE/MINOR SURGICAL ORDERABLES Final Result * (ABNORMAL) CULTURE, WOUND, W/GRAM STAIN (10/20/2024 6:05 PM NETWORK STRATEGIST) SPEC DESCRIPTION FINGER,LEFT 10/20/2024 6:06 PM [facility] SPECIAL REQUESTS NO SPECIAL REQUEST 10/20/2024 6:06 PM [facility] C[facility] GRAM STAIN RESULT NO WHITE BLOOD CELLS SEEN 10/21/2024 1:12 PM [facility] GRAM STAIN RESULT NO ORGANISMS SEEN 10/21/2024 1:12 PM [facility] CULTURE RESULT HEAVY GROWTH OF METHICILLIN RESISTANT STAPHYLOCOCCUS AUREUS FOLLOW ISOLATION PROTOCOL. (AA) 10/23/2024 8:28 AM [facility] STRUCTURE OF FINGER OF LEFT HAND / Unknown 10/20/2024 6:05 PM NETWORK STRATEGIST 10/21/2024 10:55 AM NETWORK STRATEGIST Narrative Organism Antibiotic Method Susceptibility Methicillin resistant staphylococcus aureus CLINDAMYCIN ANGY (VITEK) <=0.25: Sensitive Methicillin resistant staphylococcus aureus ERYTHROMYCIN ANGY (VITEK) <=0.25: Sensitive Methicillin resistant staphylococcus aureus OXACILLIN ANGY (VITEK) >=4: Resistant Methicillin resistant staphylococcus aureus TRIMETH-SULFAMETH. ANGY (VITEK) <=10: Sensitive Methicillin resistant staphylococcus aureus TETRACYCLINE ANGY (VITEK) <=1: Sensitive Methicillin resistant staphylococcus aureus VANCOMYCIN ANGY (VITEK) 1: Sensitive Lizz Barber SIDE LASTER TACK MICROBIOLOGY - GENERAL O RDERABLES Final Result Performing Organization Address City/[facility]/ZIP Co de Phone Number [facility] [address] [place] [address], [facility] [place] [address], * CORONAVIRUS (COVID 19) (09/23/2024 11:37 PM NETWORK STRATEGIST) Pathologist [facility] CORONAVIRUS SARS COV 2 RNA NEGATIVE NEGATIVE 09/24/2024 12:30 AM NETWORK STRATEGIST [facility] Comment: NEGATIVE RESULTS DO NOT RULE OUT COVID 19 AND SHOULD NOT BE USED THE SOLE BASIS FOR TREATMENT OR PATIENT MANAGEMENT DECISIONS, INCLUDING INFECTION CONTROL DECISIONS. NEGATIVE RESULTS SHOULD BE CONSIDERED IN THE CONTEXT OF A PATIENT'S RECENT EXPOSURES, HISTORY AND THE PRESENCE OF CLINICAL SIGNS AND SYMPTOMS CONSISTENT WITH COVID 19. THE ID NOW COVID-19 2.0 TEST HAS BEEN AUTHORIZED BY THE FDA UNDER EAU FOR USE BY AUTHORIZED LABORATORIES. PERFORMED BY NUCLEIC ACID AMPLIFICATION FOR MOLECULAR QUALITATIVE DETECTION OF SARS-COV-2. SPECIMEN TYPE NASAL 09/23/2024 11:37 PM NETWORK STRATEGIST [facility] NASAL STRUCTURE / Unknown 09/23/2024 11:37 PM NETWORK STRATEGIST Rima Fraire PA MICROBIOLOGY - GENERAL ORDERAB LES Final Result [facility] [address] [place] [address], [place] [phone] * TSH W/REFLEX (09/23/2024 11:37 PM NETWORK STRATEGIST) Pathologist [facility] TSH 1.780 0.358 - 3.74 uIU/ML 09/24/2024 12:46 AM NETWORK STRATEGIST [facility] Comment: HIGH DOSES OF BIOTIN MAY INTERFERE WITH THIS TEST RESULT. CORRELATION TO CLINICAL HISTORY AND PRESENTATION RECOMMENDED. FREE T4 NOT INDICATED 09/23/2024 11:3 7 PM NETWORK STRATEGIST Rima ORO LABORATORY Final Result Performing Organization Address City/[facility]/ZIP Co de Phone Number [facility] [address] [place] [address], [place] [phone] * INFLUENZA A & B (09/23/2024 11:37 PM NETWORK STRATEGIST) SPECIMEN TYPE NASAL 09/24/2024 12:02 AM NETWORK STRATEGIST [facility] INFLUENZA A NEGATIVE NEGATIVE 09/24/2024 12:34 AM NETWORK STRATEGIST [facility] INFLUENZA B NEGATIVE NEGATIVE 09/24/2024 12:34 AM NETWORK STRATEGIST [facility] Comment: Interpretation: Negative for Influenza A and B. A negative result does not exclude influenza virus infection. If influenza is circulating in your community, a diagnosis of influenza should be considered based on a patient's clinical presentation and empiric antiviral treatment should be considered, if indicated. If more conclusive testing is needed for hospitalized inpatients, follow-up confirmatory testing with RT-PCR requires a separate order. NASAL STRUCTURE / Unknown 09/23/2024 11:37 PM NETWORK STRATEGIST us Rima ORO MICROBIOLOGY - GENERAL ORDERAB LES Final Result Performing Organization Address City/[facility]/ZIP Co de Phone Number [facility] [address] [place] [address], [place] [phone] * (ABNORMAL) COMPREHENSIVE METABOLIC PANEL (09/23/2024 11:37 PM NETWORK STRATEGIST) GLUCOSE 110(H) 70 - 99 MG/DL 09/24/2024 12:46 AM [facility] BUN 12 7 - 18 MG/DL 09/24/2024 12:46 AM [facility] CREATININE S/P/B 1.12 0.7 - 1.3 MG/DL 09/24/2024 12:46 AM [facility] SODIUM S/P/B 138 136 - 145 MMOL/L 09/24/2024 12:46 AM [facility] POTASSIUM S/P/B 4.1 3.5 - 5.1 MMOL/L 09/24/2024 12:46 AM [facility] CHLORIDE S/P/B 108 97 - 115 MMOL/L 09/24/2024 12:46 AM [facility] CO2 24.7 21 - 32 MMOL/L 09/24/2024 12:46 AM [facility] CALCIUM S/P/B 9.3 8.5 - 10.1 MG/DL 09/24/2024 12:46 AM [facility] BILIRUBIN TOTAL S/P/B 0.3 0.2 - 1.2 MG/DL 09/24/2024 12:46 AM [facility] Comment: THIS ASSAY IS NOT RECOMMENDED FOR PATIENTS UNDERGOING TREATMENT WITH ELTROMBOPAG DUE TO THE POTENTIAL FOR FALSELY ELEVATED RESULTS. TOTAL PROTEIN S/P/B 6.8 6.4 - 8.2 G/DL 09/24/2024 12:46 AM [facility] ALBUMIN S/P/B 3.9 3.4 - 5.0 G/DL 09/24/2024 12:46 AM [facility] AST 26 15 - 37 U/L 09/24/2024 12:46 AM [facility] ALT 28 16 - 60 U/L 09/24/2024 12:46 AM [facility] ALKALINE PHOSPHATASE S/P/B 75 50 - 136 U/L 09/24/2024 12:46 AM [facility] ANION GAP 5.3 2 - 10 MMOL/L 09/24/2024 12:46 AM [facility] BUN CREATININE RATIO 10.7 6 - 26 09/24/2024 12:46 AM [facility] A/G RATIO 1.3 1.0 - 2.0 RATIO 09/24/2024 12:46 AM [facility] GFR ESTIMATE >90 >90 ML/MIN/1.7 3 M2 09/24/2024 12:46 AM [facility] Comment: NOTE: eGFR is not calculated for patients <18 years of age or gender unknown. This is an estimated GFR calculation using the new CKD EPI creatinine equation without race and so does not require a correction factor for race. This estimated GFR should not be used for calculating drug doses. 09/23/2024 11:3 7 PM NETWORK STRATEGIST Rima OR[facility]OR[facility] Final Result [facility] [address] [place] [address], [place] [phone] * (ABNORMAL) CBC W/DIFF AUTOMATED (09/23/2024 11:37 PM NETWORK STRATEGIST) WBC 5.15 4.5 - 11.0 x10'3/uL 09/24/2024 1:21 AM NETWORK STRATEGIST [facility] RBC 5.12 4.70 - 6.10 x10'6/uL 09/24/2024 1:21 AM [facility] HGB 15.0 14.0 - 18.0 G/DL 09/24/2024 1:21 AM [facility] HCT 45.3 43.0 - 54.0 % 09/24/2024 1:21 AM [facility] MCV 88.5 80.0 - 94.0 FL 09/24/2024 1:21 AM [facility] MCH 29.3 27.0 - 31.0 PG 09/24/2024 1:21 AM [facility] MCHC 33.1 32.0 - 36.0 G/DL 09/24/2024 1:21 AM [facility] RDW 12.8 11.5 - 14.5 % 09/24/2024 1:21 AM [facility] PLT 147 130 - 400 x10'3/uL 09/24/2024 1:21 AM [facility] MPV 13.1(H) 9.3 - 12.2 FL 09/24/2024 1:21 AM [facility] DIFFERENTIAL TYPE AUTOMATED DIFFERENTIAL 09/24/2024 1:21 AM [facility] NEUTROPHILS % 39.2 % 09/24/2024 1:21 AM [facility] LYMPHOCYTES % 46.2 % 09/24/2024 1:21 AM [facility] MONOCYTES % 10.9 % 09/24/2024 1:21 AM [facility] EOSINOPHILS 2.5 % 09/24/2024 1:21 AM [facility] BASOPHILS 1.0 % 09/24/2024 1:21 AM [facility] IMMATURE GRANS % 0.2 % 09/24/20 1:21 AM [facility] ABS. NEUTROPHILS 2.02 1.80 - 7.70 x10'3/uL 09/24/2024 1:21 AM [facility] ABS. LYMPHOCYTES 2.38 1.00 - 4.80 x10'3/uL 09/24/2024 1:21 AM NETWORK STRATEGIST [facility] ABS. MONOCYTES 0.56 0.30 - 0.82 x10'3/uL 09/24/2024 1:21 AM [facility] ABS. EOSINOPHILS 0.13 0.04 - 0.54 x10'3/uL 09/24/2024 1:21 AM NETWORK STRATEGIST [facility] ABS. BASOPHILS 0.05 0.01 - 0.08 x10'3/uL 09/24/2024 1:21 AM [facility] ABS. IMMATURE GRANULOCYTES 0.01 0.00 - 0.49 x10'3/uL 09/24/2024 1:21 AM [facility] RBC MORPHOLOGY RBC MORPHOLOGY APPEARS NORMAL. SLIDE REVIEWED. 09/24/2024 1:21 AM [facility] PLT EST. ADEQUATE 09/24/2024 1:21 AM [facility] 09/23/2024 11:3 7 PM NETWORK STRATEGIST Rima ORO LABORAT[facility] Final Result Performing Organization Address City/State/[facility] Co de Phone Number [facility] [address] [place] [address], * TROPONIN, QUANT (09/23/2024 11:37 PM NETWORK STRATEGIST) TROPONIN I HIGH SENSITIVITY 4 <79 ng/L 09/24/2024 12:46 AM NETWORK STRATEGIST [facility] Comment: HIGH DOSES OF BIOTIN, TROPONIN-SPECIFIC AUTOANTIBODIES, AND ANTIBODY THERAPY CONTAINING HAMA MAY INTERFERE WITH THIS TEST RESULT. CORRELATION TO CLINICAL HISTORY AND PRESENTATION RECOMMENDED. 09/23/2024 11:3 7 PM NETWORK STRATEGIST us Rima ORO LABORAT[facility] Final Result [facility] [address] [place] [address], * MAGNESIUM (09/23/2024 11:37 PM NETWORK STRATEGIST) MAGNESIUM 2.3 1.8 - 2.4 MG/DL 09/24/2024 12:46 AM NETWORK STRATEGIST [facility] 09/23/2024 11:3 7 PM NETWORK STRATEGIST Rima ORO LABORAT[facility] Final Result Performing Organization Address [facility]/ZIP Co de Phone Number [facility] [address] [place] [address], * ECG 12 lead (09/23/2024 11:25 PM NETWORK STRATEGIST) 09/23/2024 11:2 5 PM NETWORK STRATEGIST Narrative [facility] ([facility] - 09/24/2024 7:22 AM NETWORK STRATEGIST ?Bethune`raymundo Ruiz ? [address] [place] ? Test Date: ?2024-09-23 Pat Name: ? SHINE PATRICK ?Department: ?? 41 ? Room: ? EXAM09 Gender: ? Male ? 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 : ?1995 ? Requested By: RIMA FRAIRE Order Number: [id number] ? Reading MD: ?? Crystal López ? Measurements Intervals ?Munith ? Rate: ? 81 ? P: ?42 ID: ? [id number] ?QRS: ?4 QRSD: ? 88 ? T: ?41 QT: ? 349 ? QTc: ?406 ? 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/ZIP Co de Phone Number [facility] * HEPATITIS C ANTIBODY W/REFLEX (11/19/2023 10:23 AM NETWORK STRATEGIST) HEPATITIS C AB NON-REACTI VE NON-REACTI VE 11/19/2023 1:50 PM NETWORK STRATEGIST [facility] 11/19/2023 10:2 3 AM NETWORK STRATEGIST us Benji Brennan MD LABORATORY Final Res ult Performing Organization Address [facility]/ZIP Co de Phone Number [facility] [address] [place] [address], [place] [phone] * OUTSIDE LAB (SCAN) (02/13/2023) HGB A1C 10.6 % [facility] CREATININE (U) 74 [facility] MICROALBUMIN (U) <0.2 [facility] 02/13/2023 [facility] Scanned SCANNING Final Resu lt Performing Organization Address City/[facility] Co de Phone Number [facility] * (ABNORMAL) LIPID PANEL (11/21/2019 9:54 AM NETWORK STRATEGIST) CHOLESTEROL 246(H) 100 - 199 mg/dL [facility] TRIGLYCERIDES 131 0 - 149 mg/dL [facility] HDL 34(L) >39 mg/dL [facility] VLDL CALCULATION 26 5 - 40 mg/dL [facility] 1 LDL (CALCULATED) 186(H) 0 - 99 mg/dL [facility] 1 11/21/2019 9:54 AM NETWORK STRATEGIST 11/21/2019 Narrative [facility] - 11/21/2019 9:54 AM NETWORK STRATEGIST Performed at: ??01 - [facility] [address] ??[id number] Jacquard Loom Fixer: John Ulrich PhD, Phone: ??[phone] Mino Clemons DO LABORATORY Edited Result - Final Performing Organization Address City/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
--- OUTSIDE RECORDS SUMMARY | 2024-12-17 05:51 | XMS_ITS | Encounter Summary ---
Author Organization [facility] Address [address] [place] [id number] Care Team Providers Care Flight Attendant Ramp Name Role Phone None, Provider MD Primary Care Provider Penelope walters Non-Staff, Provider Primary Care Provider Alyse juarez Encounter Details Date Type Department Care Team (Late st Contact Info) Description 02/13/2023 MyChart Message Enc [facility] Multispecialty Care - [address], [address] [place] [address] Benji Brennan MD [address] [place] [address] Leave form Social History Tobacco Use Types Packs/Day Years [...] Info) Description 03/09/2025 8:00 AM CDT Treatment [facility] [place] [address] Benji Brennan MD [address] [place] [address] 05/05/2025 7:40 AM CDT Telemedicine [facility] - [address], [address] [place] [address] Benji Brennan MD [address] [place] [address] documented as of this encounter Visit Diagnoses Not on filedocumented in this encounter Additional Health Concerns Infection Onset Date Last Indicated Resolved Time COVID-19 Rule Out 03/27/2023 03/27/2023 03/27/2023 5:24 PM CDT COVID-19 Rule Out 09/23/2024 09/23/2024 09/24/2024 12:30 AM FUR FINISHER MRSA Comment:10/20/24 +MRSA Left finger 10/20/2024 10/20/2024 Assessment Noted Time PHQ-9 Depression Total Score: 27 02/06/2 023 9:56 AM CDT documented as of this encounter Care Teams Flight Attendant Ramp Relationship Specialty Start Date End Date None, Provider, MD PCP - General UNKNOWN PHYSICIAN SPECIALTY 03/05/23 04/16/24 Non-Staff, Provider PCP - General UNKNOWN PHYSICIAN SPECIALTY 04/17/24 documented as of this encounter
--- OUTSIDE RECORDS SUMMARY | 2024-12-17 05:51 | XMS_ITS | Encounter Summary ---
Author Organization [facility] Address [address] [place] [address] Care Team Providers Care Vacuum System Tester Name Role Phone Mino Clemons DO Primary Care Provider [phone] Ary Conner DO Primary Care Provider None, Provider MD Primary Care Provider Unavaila ble Non-Staff, Provider Primary Care Provider Alyse juarez Encounter Details Date Type Department Care Team (Late st Contact Info) Description 02/27/2020 MyCAlignAlyticst Message Enc [facility] - [place] [address], [address] [place] [phone] Mino Clemons, DO [address] [place] [address] Social History Tobacco Use Types Packs/Day Years Used Date Smoking Tobacco: Former Smokeless Tobacco: Never Alcohol Use Standard Drinks/Week Comments Yes 0 (1 standard drink = 0.6 oz pur e alcohol) PHQ-2 Answer Date Recorded PHQ-2 Score 6 11/20/2019 Sex and Gender Information Value Date Recorded Sex Assigned at Not on file Legal Sex Male 9:31 PM CDT Gender Identity Not on file Sexual Orientation Not on file COVID-19 Exposure Response Date Recorded In the last month, have you been in contact with someone who was confirmed or suspected to have Coronavirus / COVID-19? No / Unsure 02/27/2020 9:23 AM CDT documented as of this encounter [...] Info) Description 03/09/2025 8:[address] [facility] [place] [address] Benji Brennan MD [address] [place] [id number] 05/05/2025 7:40 AM CDT [facility] - [facility] [address], [address] [place] [address] Benji Bernnan MD [address] [place] [address] documented as of this encounter Visit Diagnoses Not on filedocumented in this encounter Additional Health Concerns Infection Onset Date Last Indicated Resolved Time COVID-19 Rule Out 08/28/2020 08/28/2020 08/29/2020 11:17 AM CDT COVID-19 Rule Out 12/22/2020 12/22/2020 12/23/2020 11:06 AM DENTAL BILLER COVID-19 Rule Out 10/27/2022 10/27/2022 10/27/2022 2:38 PM DENTAL BILLER COVID-19 Rule Out 03/27/2023 03/27/2023 03/27/2023 5:24 PM CDT COVID-19 Rule Out 09/23/2024 09/23/2024 09/24/2024 12:30 AM DENTAL BILLER MRSA Comment:10/20/24 +MRSA Left finger 10/20/2024 10/20/2024 Assessment Noted Time PHQ-9 Depression Total Score: 25 020 1:14 PM DENTAL BILLER documented as of this encounter Care Teams Vacuum System Tester Relationship Specialty Start Date End Date Mino Clemons DO PCP - General FAMILY PRACTICE 11/17/19 10/31/22 Ayr Conner DO [address] [place] [address] PCP - General FAMILY PRACTICE 12/07/22 02/06/23 None, Provider, PCP - General UNKNOWN PHYSICIAN SPECIALTY 03/05/23 04/16/24 Non-Staff, Provider PCP - General UNKNOWN PHYSICIAN SPECIALTY 04/17/24 documented as of this encounter
--- OUTSIDE RECORDS SUMMARY | 2024-12-17 05:51 | XMS_ITS | Data Portability ---
Author Organization [place] - [facility] OFFICE Address [address] [place] [address] Care Team Providers Care Order Dispatcher Name Role Phone RAMYA ESPINOSA Primary Care Provider [phone] Assessment No assessment recorded. Plan of Treatment Reminders Order Date Submit Date Provider Last Modified By Organization Details Last Modified Time Details Appointments None recorded. Lab None recorded. Referral None recorded. Procedures None recorded. Surgeries None recorded. Imaging electrocar diogram 2017 018 [email or web address] Not available 8 11:09:04 electrocar diogram 2018 019 SUSAN Not available 9 19:13:13 Medication Orders Toprol XL 25 mg tablet,ext ended release 2017 018 INTERFACE [facility], [address] [facility] , [place], [address], 8 10:37:15 Toprol XL 25 mg tablet,ext ended release 2017 018 INTERFACE [facility] 1418, [address], [address], 8 10:51:05 Toprol XL 25 mg tablet,ext ended release 2018 019 INTERFACE [facility] 1418, [address], [address], 9 22:22:11 Patient TargetsNo targets recorded. Patient Instructions Encounter Date Encounter Id Patient Instructions Last Modified By Organization Details Last Modified Time 12/24/2017 Weight loss 20 pounds Exercise advised Low cholesterol diet advised Low sodium diet advised. [email or web address] Not available 12/24/2017 10:32:26 02/14/2018 [id number] Exercise advised Low cholesterol diet advised Low sodium diet advised [email or web address] Not available 02/14/2018 11:26:41 This document was scribed by Evelin BOLDEN Not available 02/14/2018 11:03:37 03/28/2018 [id number] Weight loss 20 pounds Exercise advised Low cholesterol diet advised Low sodium diet advised. [email or web address] Not available 03/28/2018 10:37:24 09/26/2018 [id number] Weight loss 20 pounds Exercise advised Low cholesterol diet advised Low sodium diet advised. Not available 09/26/2018 10:50:56 This document was scribed by Evelin BOLDEN [email or web address] Not available 09/26/2018 10:50:44 Reason for Referral None Reported. Results Created Date Observation Date Name Description Value Unit Range Abnormal Flag Note LastModifiedBy Organization Detail LastModifiedTime 03/28/20 18 03/28/2018 elect rocar diogr am Result EKG 8: NSR. WNL Not Available Richard Weaver MD [address] [facility], [place], [address], 03/28/2018 10:10:59 12/25/19 18 12/24/2017 elect rocar diogr am No observ ation record ed. [email or web address] Not Available 2017 17:38:43 03/22/20 18 03/13/2018 CT, head, w/wo contr ast No observ ation record ed. [email or web address] Not Available 2017 12:42:57 04/01/20 18 03/28/2018 elect rocar diogr am No observ ation record ed. [email or web address] Not Available 2017 11:24:40 09/26/20 18 07/30/2018 elect rocar diogr am No observ ation record ed. [email or web address] Not Available 09/27 14:41:46 03/27/20 19 03/27/2019 elect rocar diogr am No observ ation record ed. [email or web address] Not Available 04/08 22:05:01 05/11/20 19 05/06/2019 [place], echoc ardio gram No observ ation record ed. [facility] [address], [place], [address], 09/24/2019 09:19:05 Result Notes None recorded. Problems Name Problem SNOMED Code Status Onset Date Resolution Date Notes Provider Name and Address Organization Details Recorded Time Type 2 diabetes mellitus 14164921 Completed 201612/21/2017 [facility] 8 12:36:44 Essential hypertensio n 49236154 Active 2016 [facility] Darnell [facility] 7 10:25:24 History of depression 626550739 Active [address] [facility] 7 10:25:55 Dyspnea on exertion 43654372 Active 2016 Valeriaher Patrick [facility] 7 09:09:11 Vertigo 940665838 Active [address] [facility] 7 16:41:44 Obstructive sleep apnea syndrome 44149570 Active [address] [facility] 7 16:42:11 Postural orthostatic tachycardia syndrome 518068108 Active [address] [facility] 7 17:52:02 Dyslipidemi a 871636528 Active 2016: HDL 46, LDL 117 Evelin Mercedes [facility] 8 07:25:06 Multiple sclerosis 15228885 Active 2016 [facility] 7 09:28:27 Type 2 diabetes mellitus without complicatio n 377008988 Active 2017: A1C 9.5 [facility] 8 07:30:35 Tachycardia 6222703 Active 2017: Dig 1.0 Evelin olmedo, [place] - [facility] 8 07:24:36 Autoimmune hepatitis 907361497 Active 2017 with MS : AST 118, ALT 103 Evelin olmedo, [place] - [facility] 8 07:28:56 Obesity 937394541 Active 2017 Evelin olmedo, [place] - [facility] 8 11:18:59 Problem Notes None recorded. Procedures Surgical History None recorded. Imaging Results Imaging Date Name Status LastModified by Organization Details LastModified Time 12/24/2017 electrocardiogram completed [email or web address] Informa tion not available 12/25/2017 17:38:43 03/13/2018 CT, head, w/wo contrast completed [email or web address] Information not available 03/22/2018 12:42:57 03/28/2018 electrocardiogram completed Informa tion not available 04/03/2018 11:24:40 07/30/2018 electrocardiogram completed [email or web address] Informa tion not available 09/27/2018 14:41:46 03/27/2019 electrocardiogram completed Informa tion not available 04/08/2019 22:05:01 05/06/2019 , echocardiogram completed [facility] [facility] [address], [place], [address], 09/24/2019 09:19:05 Procedure Notes None recorded. Medical Equipment None Reported. Allergies No known drug allergies Medications Name Sig Start Date Stop Date Status Note LastModified by Organization Details LastModified Time atorvastat in 80 mg tablet Take 1 tablet every day by oral route. 02/14 completed Not Available Not Available Not Available Toprol XL 25 mg tablet,ext ended release Take 1 tablet every day by oral route. 2018 active Not Available Not Available Not Avai lable ondansetro n HCl 8 mg tablet 07/12 completed Not Available Not Available Not Available lisinopril 20 mg tablet Take 1 tablet every day by oral route. 08/01 completed Not Available Not Available Not Available sertraline 100 mg tablet Take 1 tablet every day by oral route as directed . active Not Available Not Available No t Available digoxin 250 mcg (0.25 mg) tablet Take 1 tablet every day by oral route. 09/26 completed Not Available Not Available Not Available aspirin 81 mg tablet,del ayed release Take 1 tablet every day by oral route. active Not Available Not Available No t Available citalopram 20 mg tablet Take 1 tablet every day by oral route. 02/14 completed 8 not taking Not Available Not Available Not Available metformin 1,000 mg tablet Take 1 tablet twice a day by oral route. active Not Available Not Available No t Available sertraline 50 mg tablet Take 1 tablet every day by oral route. 09/26 completed Not Available Not Available Not Available diazepam 5 mg tablet Take 1 tablet twice a day by oral route. 09/04 completed Not Available Not Available Not Available amoxicilli n 875 mg-potassi um clavulanat e 125 mg tablet 09/26 completed Not Available Not Available Not Available meclizine 25 mg chewable tablet Chew 1 tablet 3 times a day by oral route. 08/17 completed Not Available Not Available Not Available melatonin 5 mg tablet Take 1 tablet as needed by oral route. 02/14 completed 8 not taking Not Available Not Available Not Available Vitamin D3 50 mcg (2,000 unit) capsule Take 1 capsule 3 times a day by oral route. active Not Available Not Available No t Available Tradjenta 5 mg tablet Take 1 tablet every day by oral route. active Not Available Not Available No t Available Vitals Date Recorded Body height Body mass index (BMI) Body weight Heart rate Oxygen saturation Oxygen saturation in Arterial blood by Pulse oximetry Systolic blood pressure Diastolic blood pressure Provider Name and Address Organization Details Last Updated DateTime 8 198.12 cm 35.2 kg/m2 220277. 67 g 63 /min 98 % 98 % 128 mm[Hg] 68 mm[Hg] [facility] 8 09:32:00 Date Recorded Body height Body mass index (BMI) Body weight Heart rate Oxygen saturation Oxygen saturation in Arterial blood by Pulse oximetry Systolic blood pressure Diastolic blood pressure Provider Name and Address Organization Details Last Updated DateTime 8 198.12 cm 35.4 kg/m2 188081. 27 g 55 /min 98 % 98 % 100 mm[Hg] 80 mm[Hg] Nati Pierre [facility] 8 10:52:30 Date Recorded Body height Body mass index (BMI) Body weight Heart rate Oxygen saturation Oxygen saturation in Arterial blood by Pulse oximetry Systolic blood pressure Diastolic blood pressure Provider Name and Address Organization Details Last Updated DateTime 8 198.12 cm 35.8 kg/m2 780299. 63 g 72 /min 97 % 97 % 132 mm[Hg] 84 mm[Hg] Nati Pierre [facility] 8 10:13:37 Date Recorded Body height Provider Name an d Address Organization Details Last Updated DateTime 09/26/2018 198.12 cm Cecilia Alaniz [facility] 09/26/2018 09:59:34 Date Recorded Body mass index (BMI) Body weight Heart rate Oxygen saturation Oxygen saturation in Arterial blood by Pulse oximetry Systolic blood pressure Diastolic blood pressure Provider Name and Address Organization Details Last Updated DateTime 8 38.3 kg/m2 079721. 07 g 74 /min 96 % 96 % 138 mm[Hg] 98 mm[Hg] Jaye Reyna [facility] 8 10:20:20 Date Recorded Body height Body mass index (BMI) Body weight Systolic blood pressure Diastolic blood pressure Provider Name and Address Organization Details Last Updated DateTime 03/27/2019 198.12 cm 40.2 kg/m2 584098.1 4 g 134 mm[Hg] 88 mm[Hg] Ryan Castano [facility] 9 10:04:39 Date Recorded Heart rate Respiratory rate Oxygen saturation Oxygen saturation in Arterial blood by Pulse oximetry Provider Name and Address Organization Details Last Updated DateTime 03/27/2019 79 /min 18 /min 97 % 97 % Kim Rasmussen [facility] 9 10:11:04 Social History Question Answer Notes LastModified by Organizat ion Details LastModified Time Tobacco Smoking Status Former Smoker Not Available [employer] 09/14/2020 03:30:42 What Is Your Level Of Alcohol Consumption? None [id number] Information not available 09/14/2020 What Is Your Level Of Caffeine Consumption? Moderate [id number] Information not available 09/14/2020 What Type Of Diet Are You Following? 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 With Others Information not available 07/06/2017 Marital Status Informatio n not available 09/10/2017 What Was The Date Of Your Most Recent Tobacco Screening? 03/27/2019 [id number] Information not available 09/14/2020 How Many Children Do You Have? 0 [id number] Information not available 09/14/2020 General Stress Level Medium Information not available 07/06/2017 Sex: Unknown Functional Status Question Answer Note LastModified by Organizat ion Details LastModified Time What is your exercise level? Occasional [id number] Information not available 09/14/2020 Mental Status None recorded. Family History Relationship Description Onset Age of this Age Resolved Age Notes LastModified by Organization Details LastModified Time Mother Diabetes mellitus Not available 2016 10:28:03 Mother Essential hypertension Not available 10:28:36 Mother Hyperlipidem ia Not available 2016 10:31:04 Mother Heart disease Not available 2016 08:51:02 Father Diabetes mellitus Not available 2016 10:28:03 Father Essential hypertension Not available 10:28:36 Father Hyperlipidem ia Not available 2016 10:31:04 Medical History Condition Response Diabetes Y Sleep Apnea Y High Cholesterol Y Hyperlipidemia Y Arrhythmia Y Hypertension Y Depression Y Past Encounters Encounter ID Performer Location Encounter Start Date Encounter Closed Date Diagnosis/Indication Diagnosis SNOMED-CT Code Diagnosis ICD10 Code Diagnosis Note [id number] MD [facility] [address] [place] [address] 07/12/2017 09:13:05 07/12/2017 11:39:14 Dizziness 088148523 R42 24 Hour Holter Will get exercise stress echo, to look for any structural heart disease, and to look for any ischemia Type 2 christina betes mellitus 59101764 E11.9 treatment and evaluation by primary care doctor Hyperlipidemia 50852980 E78.5 11/28/16 LDL 100 On Atorvastat inWill add ASA 81 mg po qd Dyspnea on exertion 6084 5006 R06.09 Obstructiv e sleep apnea syndrome 17210053 G47.33 Obesity 302166904 E66.9 [id number] MD [facility] [address] [place] [place] [address] 08/01/2017 16:50:29 08/02/2017 16:17:15 Vertigo 584662749 R42 better now, but still dizzy Had a drop in BP to 80/60 upon standing Tachycardia 7128055 R00. 0 Will add Toprol Postural o rthostatic tachycardia syndrome 939232729 I95.1 Toprol DC Lisinopril [id number] Richard Weaver MD [place] [facility] [address] [place] [address] 08/17/2017 09:03:41 08/17/2017 14:14:41 Essential hypertension 72537452 I10 now well controlled . Vertigo 558731417 R42 better now, but still dizzy Previously , Had a drop in BP to 80/60 upon standing Tachycardia 6487271 R00. 0 On Toprol Postural o rthostatic tachycardia syndrome 040148526 I95.1 Toprol DC Lisinopril [id number] MD [facility] [address] [place] [address] 09/24/2017 09:03:34 09/25/2017 14:02:39 Postural orthostatic tachycardia syndrome 679504334 I95.1 Toprol, better now Essential hypertension 39367770 I10 now well controlled . Vertigo 032724557 R42 better now, had MS Tachycardia 8572837 R00. 0 On Toprol Multiple sclerosis 51914 007 G35 [id number] MD [facility] [address] [place] [address] 12/24/2017 09:18:46 12/24/2017 10:41:36 Postural orthostatic tachycardia syndrome 120565644 I95.1 Toprol, better now Essential hypertension 53898869 I10 now well controlled . Vertigo 306391655 R42 better now, had MS Tachycardia 1177307 R00. 0 On Toprol, and digWill check dig level Multiple sclerosis 96199 007 G35 he see [place] [id number] MD [facility] [address] [place] [address] 02/14/2018 10:18:00 02/14/2018 11:55:07 Postural orthostatic tachycardia syndrome 164583232 I95.1 On toprol. Better now DC Digoxin Essential hypertension 01759025 I10 now well controlled Vertigo 978329250 R42 Improved has MS Multiple sclerosis 93365 007 G35 Sees a Neurologis t at [place] Type 2 christina betes mellitus without complication 992316481 E11.9 Discussed importance of adequate glycemic control to minimize cardiovasc ular disease progressio n. A1C goal of < 7% for type 2 DM Autoimmune hepatitis 408 196601 K75.4 with MS 02/08/18: AST 118, ALT 103, CPK 5013 Obesity 501993940 E66.9 20 lb. weight loss recommende d over the next 2 months Serum crea tinine above reference range 044817606 R79.89 FU in 2 weeksDC lipitor [id number] MD [facility] [address] [place] [address] 03/28/2018 10:06:04 03/28/2018 11:09:04 Postural orthostatic tachycardia syndrome 853216328 I95.1 On toprol. Better now DC Digoxin Essential hypertension 27222226 I10 now well controlled Vertigo 859468321 R42 Improved has MS Multiple sclerosis 95248 007 G35 Sees a Neurologis t at [place] Type 2 christina betes mellitus without complication 486499772 E11.9 Discussed importance of adequate glycemic control to minimize cardiovasc ular disease progressio n. A1C goal of < 7% for type 2 DM Serum crea tinine above reference range 404700534 R79.89 Better now Autoimmune hepatitis 408 245355 K75.4 with MS 02/08/18: AST 118, ALT 103, CPK 5013 Obesity 872946551 E66.9 20 lb. weight loss recommende d over the next 2 months [id number] MD [facility] [address] [place] [address] 09/26/2018 09:14:51 09/26/2018 11:58:24 Postural orthostatic tachycardia syndrome 210751912 I95.1 On toprol. Better now DC Digoxin Essential hypertension 46092988 I10 now well controlled Vertigo 007863667 R42 Improved has MS Multiple sclerosis 08934 007 G35 Sees a Neurologis t at [place] Type 2 christina betes mellitus without complication 360771772 E11.9 Discussed importance of adequate glycemic control to minimize cardiovasc ular disease progressio n. A1C goal of < 7% for type 2 DM Serum crea tinine above reference range 792536363 R79.89 Better now Autoimmune hepatitis 408 557058 K75.4 with MS 02/08/18: AST 118, ALT 103, CPK 5013 Obesity 775882932 E66.9 20 lb. weight loss recommende d over the next 2 months [id number] MD [facility] [address] [place] [address] 03/27/2019 09:31:09 03/27/2019 10:39:25 Postural orthostatic tachycardia syndrome 933251858 I95.1 On toprol. Better now DC Digoxin Essential hypertension 62291355 I10 now well controlled Vertigo 489404564 R42 Improved has MS Multiple sclerosis 74240 007 G35 Sees a Neurologis t at [place] Type 2 christina betes mellitus without complication 882946125 E11.9 Discussed importance of adequate glycemic control to minimize cardiovasc ular disease progressio n. A1C goal of < 7% for type 2 DM Serum crea tinine above reference range 678404655 R79.89 Better now Autoimmune hepatitis 408 372971 K75.4 with MS 02/08/18: AST 118, ALT 103, CPK 5013 Obesity 008189458 E66.9 20 lb. weight loss recommende d over the next 2 months Health Concerns Section Related Observation LastModified by Organization Detai ls LastModified Time None Recorded Concern Status LastModified by Organization Details LastModified Time None Recorded Advance Directives Directive None Recorded Payers Encounter Date Sequence Insurance Name Policy Number Policy Montemayor Covered Member ID Montemayor Member ID Guarantor Name 12/24/2017 1 [facility] [id number] Shine Patrick [id number] Shine Patrick 02/14/2018 1 [facility] [id number] Shine Patrick [id number] Shine Patrick 03/28/2018 1 [facility] [id number] Shine Patrick [id number] Shine Patrick 09/26/2018 1 [facility] [id number] Shine Patrick [id number] Shine Patrick 03/27/2019 1 [facility] [id number] Shine Patrick [id number] Shine Patrick Notes Date Note Type Note Provider Name and Address Organization Details Recorded Time 12/24/2017 text/html 12/24/17 CC: Follow-up Shortness of breath and dizziness 22 y/o male with a history of HTN, ALINA on Cpap and Diabetes here for his follow up. Pt has lost 13 lbs since last visit. Patient presents today for follow-up. No new complaints, feeling well overall. Pt reports he only has dizziness with MS flare-up, most recent flare up was last week. No chest pain. Reports intermittent shortness of breath at rest and dyspnea on exertion. No orthopnea, No PNDs. Occasional dizziness with MS flare-ups. No recent syncope or near syncope, history of syncope 04/07/17. No falls. No ankle or leg edema. Pt reports medications cause nausea. Pt reports being unsteady with no falls. Previously, pt was discharged from [facility]. Pt was there receiving treatment related to his recent MS diagnosis. Results from this visit, or from the past: 09/18/17: SOD 138, K 3.8, CL 101, CO2 26, GL 78, BUN 23, CR 0.99 09/18/17: WBC 10.97, HGB 14.8, HCT 43.0, PLT 187 09/15/17: TC 201, HDL 51, TR 50, LDL 140. 09/14/17: TSH 3.34, Free T4 1.24 07/20/17: SOD 139, K 4.3, CL 100, CO2 28, GL 114, BUN 13, CR 0.94, AST 15, ALT 17. 07/20/17: WBC 6.2, HGB 14.2, HCT 41.9, PLT 198. 04/07/17: SOD 138, K 3.6, CL 99, CO2 24, GL 160, BUN 12, CR 1.0, AST 22, ALT 20. 11/28/16: SOD 139, K 4.0, CL 99, CO2 30, GL 162, BUN 12, CR 0.9, TC 157, HDL 41, LDL 100, ALT 25 12/09/15: SOD 139, K 3.9, CL 100, CO2 27, GL 102, BUN 17, CR 1.15, AST 29, ALT 23, CK 744 EK12/24/17 Low voltage, chest leads. EK08/01/17 Sinus Tachycardia. Within Normal Limits. EK07/12/[address] Infer[address] elevation. Repolarization variant. Probably normal. EK04/07/17 Normal sinus rhythm. Normal ECG. When compared with ECG of 30-JUL-2011 No significant change was found. EK12/09/15 Sinus rhythm. Minimal voltage criteria for LVH, consider normal variant. Borderline ECG. EK07/30/11 Normal sinus rhythm. Minimal voltage criteria for LVH, may be normal variant. Early repolarization. Borderline ECG. When compared with ECG of 29-JUL-2011 No significant change was found. HOLTER: 07/17/17 Unremarkable holter. Rare PVC's but not correlated with symptoms. Rare PAC's but not correlated with symptoms. CXR: 07/20/17 Cardiac size is normal. Trachea is normally positioned. Hilar and mediastinal contours are within normal limits. Lungs and pleural spaces are clear. No consolidation, effusion or pneumothorax seen. Upper abdomen unremarkable. SE: 07/17/17 Negative stress echo. Mild exercise impairment. SE: 07/31/11 Low exercise tolerance. Negative stress test for ischemia. Isolated single PVCs (paroxysmal ventricular contractions). Hypertension. Richard Weaver MD [address] [place], [address], [facility] 12/24/2017 10:33:05 02/14/2018 text/html 02/14/18 CC: Follow-up Shortness of breath and dizziness 22 y/o male with a history of HTN, MS, ALINA on Cpap and diabetes here for his follow up. Patient presents today for follow-up. No new complaints, feeling well overall. Pt reports he only occasional dizziness with MS flare-up, most recent flare up was last week. No chest pain. Denies shortness of breath at rest. Reports dyspnea on exertion. No orthopnea, No PNDs. Occasional dizziness with MS flare-ups. No recent syncope or near syncope, history of syncope 04/07/17. No falls. No ankle or leg edema. Pt reports being unsteady with no falls. Had elevated CPK, had to stop lipitor Previously, pt was discharged from [facility]. Pt was there receiving treatment related to his recent MS diagnosis. Results from this visit, or from the past: 02/08/18: Na 141 ,K 4.2 , CL 103 ,CO2 29 ,GLU 87 ,BUN 12,CR 0.9, CPK 5013, AST 118, ALT 103 02/08/18: TC 176 ,TG 63 ,HDL 46, LDL 117 02/08/18: Dig 1.0 09/18/17: SOD 138, K 3.8, CL 101, CO2 26, GL 78, BUN 23, CR 0.99 09/18/17: WBC 10.97, HGB 14.8, HCT 43.0, PLT 187 09/15/17: TC 201, HDL 51, TR 50, LDL 140. 09/14/17: TSH 3.34, Free T4 1.24 07/20/17: SOD 139, K 4.3, CL 100, CO2 28, GL 114, BUN 13, CR 0.94, AST 15, ALT 17. 07/20/17: WBC 6.2, HGB 14.2, HCT 41.9, PLT 198. 04/07/17: SOD 138, K 3.6, CL 99, CO2 24, GL 160, BUN 12, CR 1.0, AST 22, ALT 20. 11/28/16: SOD 139, K 4.0, CL 99, CO2 30, GL 162, BUN 12, CR 0.9, TC 157, HDL 41, LDL 100, ALT 25 12/09/15: SOD 139, K 3.9, CL 100, CO2 27, GL 102, BUN 17, CR 1.15, AST 29, ALT 23, CK 744 EK12/24/17 Low voltage, chest leads. EK08/01/17 Sinus Tachycardia. Within Normal Limits. EK07/12/[address] Infer[address] ST elevation. Repolarization variant. Probably normal. EK04/07/17 Normal sinus rhythm. Normal ECG. When compared with ECG of 30-JUL-2011 No significant change was found. EK12/09/15 Sinus rhythm. Minimal voltage criteria for LVH, consider normal variant. Borderline ECG. EK07/30/11 Normal sinus rhythm. Minimal voltage criteria for LVH, may be normal variant. Early repolarization. Borderline ECG. When compared with ECG of 29-JUL-2011 No significant change was found. HOLTER: 07/17/17 Unremarkable holter. Rare PVC's but not correlated with symptoms. Rare PAC's but not correlated with symptoms. CXR: 07/20/17 Cardiac size is normal. Trachea is normally positioned. Hilar and mediastinal contours are within normal limits. Lungs and pleural spaces are clear. No consolidation, effusion or pneumothorax seen. Upper abdomen unremarkable. SE: 07/17/17 Negative stress echo. Mild exercise impairment. SE: 07/31/11 Low exercise tolerance. Negative stress test for ischemia. Isolated single PVCs (paroxysmal ventricular contractions). Hypertension. MRI Brain W/WO Contrast: 08/11/17 Extensive supratentorial and infratentorial primarily white matter process with combination of nonenhancing T2 hyperintense lesions and several enhancing lesions many of which reveal eitherperipheral rim or incomplete ring-like enhancement. In the appropriate clinical context, findings provide strong evidence for multiple sclerosis with severe plaque burden. Neurologic consultation is recommended. Richard Weaver MD [address] [place], [address], [facility] 02/14/2018 11:27:33 03/28/2018 text/html 03/28/18 CC: Follow-up elevated CPK 22 year-old man with hypertension, MS, ALINA and diabetes mellitus, obesity presents today for follow-up. Pt has 4 lb weight gain since last visit. He was in the ER in 03/13/18 because of Headache with MRI and CT scan without any acute finding. He feels well overall. He has occasional dizziness with MS flare-up. Had elevated CPK and LFTs so Lipitor was stopped. His most recent CPK is elevated at 429. Greatly improved from previous CPK of 5013 collected on 02/08/18. He has ALINA and is on CPAP therapy. Patient presents today for follow-up. Pt reports he has been having headaches that are somewhat controlled with Ibuprofen. Pt reports BS has been controlled lately. He denies chest pain. Denies shortness of breath at rest. Reports dyspnea on exertion. No orthopnea, No PNDs. Occasional dizziness with MS flare-ups. No recent syncope or near syncope, history of syncope 04/07/17. No falls. No ankle or leg edema. Pt reports being unsteady with no falls. Pt reports taking medications daily with no missed doses. Metoprolol refills requested this visit. Previously, pt was discharged from [facility]. Pt was there receiving treatment related to his recent MS diagnosis. Results from this visit, or from the past: 02/25/18: Na 140, K 4.4, CL 102, CO2 30, GL 96, BUN 15, CR 0.9, AST 25, ALT 43, CPK 429 02/08/18: Na 141 ,K 4.2 , CL 103 ,CO2 29 ,GLU 87 ,BUN 12,CR 0.9, CPK 5013, AST 118, ALT 103 02/08/18: TC 176 ,TG 63 ,HDL 46, LDL 117 02/08/18: Dig 1.0 09/18/17: SOD 138, K 3.8, CL 101, CO2 26, GL 78, BUN 23, CR 0.99 09/18/17: WBC 10.97, HGB 14.8, HCT 43.0, PLT 187 09/15/17: TC 201, HDL 51, TR 50, LDL 140. 09/14/17: TSH 3.34, Free T4 1.24 07/20/17: SOD 139, K 4.3, CL 100, CO2 28, GL 114, BUN 13, CR 0.94, AST 15, ALT 17. 07/20/17: WBC 6.2, HGB 14.2, HCT 41.9, PLT 198. 04/07/17: SOD 138, K 3.6, CL 99, CO2 24, GL 160, BUN 12, CR 1.0, AST 22, ALT 20. 11/28/16: SOD 139, K 4.0, CL 99, CO2 30, GL 162, BUN 12, CR 0.9, TC 157, HDL 41, LDL 100, ALT 25 12/09/15: SOD 139, K 3.9, CL 100, CO2 27, GL 102, BUN 17, CR 1.15, AST 29, ALT 23, CK 744 EKG 03/28/18: NSR. WNL EK12/24/17 Low voltage, chest leads. EK08/01/17 Sinus Tachycardia. Within Normal Limits. EK07/12/[address] Infer[address] elevation. Repolarization variant. Probably normal. EK04/07/17 Normal sinus rhythm. Normal ECG. When compared with ECG of 30-JUL-2011 No significant change was found. EK12/09/15 Sinus rhythm. Minimal voltage criteria for LVH, consider normal variant. Borderline ECG. EK07/30/11 Normal sinus rhythm. Minimal voltage criteria for LVH, may be normal variant. Early repolarization. Borderline ECG. When compared with ECG of 29-JUL-2011 No significant change was found. HOLTER: 07/17/17 Unremarkable holter. Rare PVC's but not correlated with symptoms. Rare PAC's but not correlated with symptoms. CXR: 07/20/17 Cardiac size is normal. Trachea is normally positioned. Hilar and mediastinal contours are within normal limits. Lungs and pleural spaces are clear. No consolidation, effusion or pneumothorax seen. Upper abdomen unremarkable. SE: 07/17/17 Negative stress echo. Mild exercise impairment. SE: 07/31/11 Low exercise tolerance. Negative stress test for ischemia. Isolated single PVCs (paroxysmal ventricular contractions). Hypertension. 03/13/18 CT HEAD: Normal CT head. MRI Brain W/WO Contrast: 08/11/17 Extensive supratentorial and infratentorial primarily white matter process with combination of nonenhancing T2 hyperintense lesions and several enhancing lesions many of which reveal eitherperipheral rim or incomplete ring-like enhancement. In the appropriate clinical context, findings provide strong evidence for multiple sclerosis with severe plaque burden. Neurologic consultation is recommended. Richard Weaver MD [address] [place], [address], [facility] 03/28/2018 10:37:44 09/26/2018 text/html 09/26/18 CC: Follow-up elevated CPK 22 year-old man with hypertension, MS, ALINA and diabetes mellitus, obesity presents today for follow-up. He was in the ER in 03/13/18 because of Headache with MRI and CT scan without any acute finding. He feels well overall. He gets rare dizziness with MS flare-up. Had elevated CPK and LFTs so Lipitor was stopped. His most recent CPK is elevated at 429. Greatly improved from previous CPK of 5013 collected on 02/08/18. He has ALINA and is on CPAP therapy. Patient presents today for follow-up. Pt reports he has been occasional headaches that are somewhat controlled with Ibuprofen. Pt reports BS has been controlled lately. He denies chest pain. Denies shortness of breath at rest. Reports dyspnea on exertion. No orthopnea, No PNDs. Occasional dizziness with MS flare-ups. No recent syncope or near syncope, history of syncope 04/07/17. No falls. No ankle or leg edema. Pt reports being unsteady with no falls. Pt reports taking medications daily with no missed doses. Metoprolol refills requested this visit. Previously, pt was discharged from [facility]. Pt was there receiving treatment related to his recent MS diagnosis. Results from this visit, or from the past: 02/25/18: Na 140, K 4.4, CL 102, CO2 30, GL 96, BUN 15, CR 0.9, AST 25, ALT 43, CPK 429 02/08/18: Na 141 ,K 4.2 , CL 103 ,CO2 29 ,GLU 87 ,BUN 12,CR 0.9, CPK 5013, AST 118, ALT 103 02/08/18: TC 176 ,TG 63 ,HDL 46, LDL 117 02/08/18: Dig 1.0 09/18/17: SOD 138, K 3.8, CL 101, CO2 26, GL 78, BUN 23, CR 0.99 09/18/17: WBC 10.97, HGB 14.8, HCT 43.0, PLT 187 09/15/17: TC 201, HDL 51, TR 50, LDL 140. 09/14/17: TSH 3.34, Free T4 1.24 07/20/17: SOD 139, K 4.3, CL 100, CO2 28, GL 114, BUN 13, CR 0.94, AST 15, ALT 17. 07/20/17: WBC 6.2, HGB 14.2, HCT 41.9, PLT 198. 04/07/17: SOD 138, K 3.6, CL 99, CO2 24, GL 160, BUN 12, CR 1.0, AST 22, ALT 20. 11/28/16: SOD 139, K 4.0, CL 99, CO2 30, GL 162, BUN 12, CR 0.9, TC 157, HDL 41, LDL 100, ALT 25 12/09/15: SOD 139, K 3.9, CL 100, CO2 27, GL 102, BUN 17, CR 1.15, AST 29, ALT 23, CK 744 EKG 09/26/18: EKG 03/28/18: NSR. WNL EK12/24/17 Low voltage, chest leads. EK08/01/17 Sinus Tachycardia. Within Normal Limits. EK07/12/[address] Infer[address] elevation. Repolarization variant. Probably normal. EK04/07/17 Normal sinus rhythm. Normal ECG. When compared with ECG of 30-JUL-2011 No significant change was found. EK12/09/15 Sinus rhythm. Minimal voltage criteria for LVH, consider normal variant. Borderline ECG. EK07/30/11 Normal sinus rhythm. Minimal voltage criteria for LVH, may be normal variant. Early repolarization. Borderline ECG. When compared with ECG of 29-JUL-2011 No significant change was found. HOLTER: 07/17/17 Unremarkable holter. Rare PVC's but not correlated with symptoms. Rare PAC's but not correlated with symptoms. CXR: 07/20/17 Cardiac size is normal. Trachea is normally positioned. Hilar and mediastinal contours are within normal limits. Lungs and pleural spaces are clear. No consolidation, effusion or pneumothorax seen. Upper abdomen unremarkable. SE: 07/17/17 Negative stress echo. Mild exercise impairment. SE: 07/31/11 Low exercise tolerance. Negative stress test for ischemia. Isolated single PVCs (paroxysmal ventricular contractions). Hypertension. 03/13/18 CT HEAD: Normal CT head. MRI Brain W/WO Contrast: 08/11/17 Extensive supratentorial and infratentorial primarily white matter process with combination of nonenhancing T2 hyperintense lesions and several enhancing lesions many of which reveal eitherperipheral rim or incomplete ring-like enhancement. In the appropriate clinical context, findings provide strong evidence for multiple sclerosis with severe plaque burden. Neurologic consultation is recommended. Richard Weaver MD [address] [place], [address], [facility] 09/26/2018 12:02:15 03/27/2019 text/html CC: dyspnea on exertion 22 year-old man with hypertension, MS, ALINA and diabetes mellitus, obesity presents today for follow-up. He was in the ER in 03/13/18 because of Headache with MRI and CT scan without any acute finding. He feels well overall. He gets rare dizziness with MS flare-up. Had elevated CPK and LFTs so Lipitor was stopped. He denied any chest pain, shortness of breath, orthopnea, dizziness, palpitation, or syncope He has ALINA and is on CPAP therapy. Patient presents today for follow-up. Pt reports he has been occasional headaches that are somewhat controlled with Ibuprofen. Pt reports BS has been controlled lately. He denies chest pain. Denies shortness of breath at rest. Reports dyspnea on exertion. No orthopnea, No PNDs. Occasional dizziness with MS flare-ups. No recent syncope or near syncope, history of syncope 04/07/17. No falls. No ankle or leg edema. Pt reports being unsteady with no falls. Pt reports taking medications daily with no missed doses. Metoprolol refills requested this visit. Previously, pt was discharged from [facility]. Pt was there receiving treatment related to his recent MS diagnosis. Results from this visit, or from the past: CMP, serum or plasma 07-30-2018 07/30/18 CMP: NA 140, K 4.4, CH 106, CO2 26, GL 89, B 16, CR 1.0, AST 34, ALT 24 07/30/18 CBC: WBC 6.1, RBC 5.0, HGB 14.6, HCT 43.5, PLT 191 02/25/18: Na 140, K 4.4, CL 102, CO2 30, GL 96, BUN 15, CR 0.9, AST 25, ALT 43, CPK 429 02/08/18: Na 141 ,K 4.2 , CL 103 ,CO2 29 ,GLU 87 ,BUN 12,CR 0.9, CPK 5013, AST 118, ALT 103 02/08/18: TC 176 ,TG 63 ,HDL 46, LDL 117 02/08/18: Dig 1.0 09/18/17: SOD 138, K 3.8, CL 101, CO2 26, GL 78, BUN 23, CR 0.99 09/18/17: WBC 10.97, HGB 14.8, HCT 43.0, PLT 187 09/15/17: TC 201, HDL 51, TR 50, LDL 140. 09/14/17: TSH 3.34, Free T4 1.24 07/20/17: SOD 139, K 4.3, CL 100, CO2 28, GL 114, BUN 13, CR 0.94, AST 15, ALT 17. 07/20/17: WBC 6.2, HGB 14.2, HCT 41.9, PLT 198. 04/07/17: SOD 138, K 3.6, CL 99, CO2 24, GL 160, BUN 12, CR 1.0, AST 22, ALT 20. 11/28/16: SOD 139, K 4.0, CL 99, CO2 30, GL 162, BUN 12, CR 0.9, TC 157, HDL 41, LDL 100, ALT 25 12/09/15: SOD 139, K 3.9, CL 100, CO2 27, GL 102, BUN 17, CR 1.15, AST 29, ALT 23, CK 744 EKG 03/27/2019 Normal sinus rhythm within normal limits EKG 09/26/18: EKG 03/28/18: NSR. WNL EK12/24/17 Low voltage, chest leads. EK08/01/17 Sinus Tachycardia. Within Normal Limits. EK07/12/[address] Infer[address] elevation. Repolarization variant. Probably normal. EK04/07/17 Normal sinus rhythm. Normal ECG. When compared with ECG of 30-JUL-2011 No significant change was found. EK12/09/15 Sinus rhythm. Minimal voltage criteria for LVH, consider normal variant. Borderline ECG. EK07/30/11 Normal sinus rhythm. Minimal voltage criteria for LVH, may be normal variant. Early repolarization. Borderline ECG. When compared with ECG of 29-JUL-2011 No significant change was found. HOLTER: 07/17/17 Unremarkable holter. Rare PVC's but not correlated with symptoms. Rare PAC's but not correlated with symptoms. CXR: 07/20/17 Cardiac size is normal. Trachea is normally positioned. Hilar and mediastinal contours are within normal limits. Lungs and pleural spaces are clear. No consolidation, effusion or pneumothorax seen. Upper abdomen unremarkable. SE: 07/17/17 Negative stress echo. Mild exercise impairment. SE: 07/31/11 Low exercise tolerance. Negative stress test for ischemia. Isolated single PVCs (paroxysmal ventricular contractions). Hypertension. 03/13/18 CT HEAD: Normal CT head. MRI Brain W/WO Contrast: 08/11/17 Extensive supratentorial and infratentorial primarily white matter process with combination of nonenhancing T2 hyperintense lesions and several enhancing lesions many of which reveal eitherperipheral rim or incomplete ring-like enhancement. In the appropriate clinical context, findings provide strong evidence for multiple sclerosis with severe plaque burden. Neurologic consultation is recommended. Richard Weaver MD [address] [place], [address], [facility] 03/29/2019 22:22:19
--- OUTSIDE RECORDS SUMMARY | 2024-12-17 05:51 | XMS_ITS | Patient Health Summary ---
Author Organization [facility] Address [address] [place] [address] Care Team Providers Care Platform Stapler Name Role Phone Louann Russ TEACHER PHYSICALLY IMPAIRED-STONE ROUGHER Primary Care Provider + Note from [facility],non-owned Affiliates and Associated Physician Practices is amultiple site organization consisting of ambulatory clinics and hospital sitesin [place] and [place]. This disclosure is being madepursuant to the Care Everywhere program and may not contain all information available regarding this patient. Last updated 18.[facility] Allergies No known active allergies Medications * Be aware that medications may not be up to date on this document. Alwaysverify current medications with the patient. * metformin (GLUCOPHAGE) 500 MG tablet(Started 07/06/2010) Take 1 Tab by mouth. Take 500 mg by mouth twice a day with food for 5 days, then increase to 1000 mg twice a day after that. 11 refills left * Lancets (MICROLET) MISC(Started 07/06/2010) Use. Use to test blood sugar twice daily 11 refills left * glucose blood strip(Started 07/06/2010) Use 1 Strip. Use to test blood sugar twice daily 11 refills left Active Problems Problem Noted Date Diagnosed Date [...] Comments Blood Pressure 130/72 12/21/2010 10:16 AM HUB CUTTER APPRENTICE Pulse 74 12/21/2010 10:16 AM HUB CUTTER APPRENTICE Temperature - - Respiratory Rate 10 12/21/2010 10:1 6 AM HUB CUTTER APPRENTICE Oxygen Saturation - - Inhaled Oxygen Concentration - - Weight 176.4 kg (388 lb 14.3 oz) 2010 10:16 AM HUB CUTTER APPRENTICE Height 194.8 cm (6' 4.69 ) 12/21/2010 1 0:16 AM HUB CUTTER APPRENTICE Body Mass Index 46.49 12/21/2010 10:16 AM HUB CUTTER APPRENTICE Procedures * FLOW CYTOMETRY RITUXAN BLOOD(Performed 07/15/2020) Performed for Multiple sclerosis * LAB RESULTS ORDER(Performed 12/27/2010) * IMAGING/RADIOLOGY/XRAY RESULTS ORDER(Performed 12/27/2010) * EKG 15-LEAD(Performed 12/22/2010) Performed for Chest pain * ECHO CONSULT - PEDIATRIC(Performed 12/21/2010) Performed for Chest pain * MICROALB/CREAT RATIO URINE RANDOM PANEL(Performed 07/06/2010) Performed for Diabetes Mellitus Type 2 in Obese (HCC) * COMPREHENSIVE METABOLIC PANEL(Performed 07/06/2010) Performed for Diabetes Mellitus with Complication (HCC) * PATHOLOGY REPORTS - HPF HISTORICAL(Performed 07/12/2009) Results * FLOW CYTOMETRY RITUXAN BLOOD (07/15/2020 8:47 AM CDT) Reason for test Multiple sclerosis 340 07/15/2020 1:40 PM [facility] Client Specimen ID # [id number] 07/15/2020 1:40 PM [facility] Number of Markers 7 07/15/2020 1:40 PM [facility] Flow Cytometry Results Differential Result Comment WBC Count /uL 6,500 % Lymphocytes 37 Lymphocyte Count u/L 2,405 Cell Region A: Lymphocytes Surface Marker Results % Absolute Count (cells/uL) CD3 85 2,044 CD3+CD4+ 36 866 CD3+CD8+ 48 1,154 CD4:CD8 Ratio 0.75 CD19 0 0 CD20 0 0 CD45 100 2,405 CD56 14 337 07/15/2020 1:40 PM [facility] Flow Cytometry Interpretation Testing is technical only and does not require an interpretation of results. 07/15/2020 1:40 PM CDT [facility] Reference Range Adult Normal Reference Range Adult (> 18 years) CD3 54-84 % CD4 33-63 % CD8 12-39 % CD19 5-19 % CD56 6-26 % CD4+CD45RA+ 30-50 % CD4+CD45RO+ 17-42 % CD19+CD27+ 7-48 % CD19+CD27+IgD+ 7-29 % CD19+CD27+IgD- 3-23 % CD19+YX16-WhQ+ 29-93 % % 07/15/2020 1:40 PM CDT [facility] Disclaimer Test performed at [facility], [address] [place] [address], [id number]. This test was developed and its performance [...] perform high complexity clinical testing. By law [place], CD4 lymphocyte counts on patients with HIV infection must be reported by the physician to the [facility] Health authority. 07/15/2020 1:40 PM CDT [facility] Embedded Images 0 1:40 PM CD[address] [facility] Blood BLOOD SPECIMEN / Unknown 07/15/2020 8:47 AM CDT 07/15/2020 10:25 AM CDT Mariya Bush MD LAB - PATHOLOGY/CYTO LOGY ORDERABLES [facility] [address] [place] [address]. [place] [address], [facility] [phone] * LAB RESULTS ORDER (12/27/2010 7:49 AM HUB CUTTER APPRENTICE) Narrative Procedure Note Document, Scanned - 12/26/2010 2:22 PM HUB CUTTER APPRENTICE Scanned Document LAB - THERAPEUTIC DR ORALIA MONITORING ORDERABLES * IMAGING/RADIOLOGY/XRAY RESULTS ORDER (12/27/2010 7:49 AM HUB CUTTER APPRENTICE) Anatomical Region Laterality Modality Other Narrative Procedure Note Document, Scanned - 12/26/2010 2:22 PM HUB CUTTER APPRENTICE Scanned Document IMAGING * EKG 15-LEAD (12/22/2010) Jayme Petit MD ECG ORDERABLES * ECHO CONSULT - PEDIATRIC (12/21/2010 10:26 AM HUB CUTTER APPRENTICE) 12/21/2010 10:2 6 AM HUB CUTTER APPRENTICE Narrative [facility] - 12/21/2010 5:05 PM HUB CUTTER APPRENTICE , Transthoracic Echocardiogram 2D, M-mode, Doppler, and Color Doppler Name: SHINE PATRICK MR #: [id number] Study date: 12/21/2010 Age: 15 years : 1995 Gender: Male Ht: 76.7 in / 194.8 cm Wt: 388.1 lb / 176.4 kg BSA: 2.96 m?? HR: BP: / age: FAUSTINA: Maternal age: STADIUM MANAGER: ??Ayah Petit MD PEDIATRIC ECHO IN SERVICE EDUCATOR: ??GILDA Cano Indications: Chest pain. History: Signs/symptoms include murmur. Procedure: The procedure was performed in the echo lab. Anatomic relationships: Visceral situs: normal. Left sided cardiac apex (levocardia). Normal atrial situs (atrial situs solitus). Concordant atrioventricular alignment. Ventricular d-loop. Normal infundibular anatomy. Concordant ventriculoarterial connection. Normally related great vessels. Systemic veins: SVC: The superior vena cava and left innominate vein appeared of normal caliber, with normal flow. IVC: The inferior vena cava was normal in size and course. IVC Doppler: The flow pattern was normal. Pulmonary veins: The pulmonary veins drained normally to the left atrium. Doppler: Doppler flow pattern was normal in the pulmonary vein(s). Right atrium: Size was normal. Left atrium: Size was normal. Atrial septum: No defect or patent foramen ovale was identified. Tricuspid valve: The valve structure was normal. Doppler: The transtricuspid velocity was within the normal range. There was no evidence for tricuspid stenosis. There was trivial regurgitation. Mitral valve: Valve structure was normal. There is no mitral valve prolapse. Doppler: The transmitral velocity was within the normal range. There was no evidence for stenosis. There was no regurgitation. Right ventricle: The cavity size was normal. Wall thickness was normal. Systolic function was normal. RV outflow tract: There was no obstruction. Left ventricle: The cavity size was normal. Wall thickness was normal. Systolic function was normal. There were no regional wall motion abnormalities. Doppler: Left ventricular diastolic function parameters were normal. LV outflow tract: There was no outflow obstruction. Ventricular septum: Thickness was normal. The septum was intact. Pulmonic valve: Leaflets exhibited normal thickness and normal cuspal separation. Doppler: The transpulmonic velocity was within the normal range. There was trivial regurgitation. Aortic valve: The valve was trileaflet. Leaflets exhibited normal thickness and normal cuspal separation. Doppler: Transaortic velocity was within the normal range. There was no stenosis. There was no regurgitation. Pulmonary artery: The main pulmonary artery was normal, with normal-sized, confluent proximal branch pulmonary arteries. Aorta: There was a normal-sized aortic arch with normal brachiocephalic branching. The root was normal in size. The ascending aorta size was normal. Coronary arteries: The size and course of the left main, proximal left anterior descending, and proximal right coronary arteries were normal. Right coronary artery: Flow was normal. Left main coronary artery: Flow was normal. Left anterior descending: Flow was normal. Extracardiac shunting: No ductal shunt was detected by Doppler. Pericardium: There was no pericardial effusion. The pericardium was normal in appearance. Impressions: - ??Diagnoses: Normal intracardiac anatomy. Prepared and signed by Ayah Petit MD Signed 12/21/2010 17:05:15 DOPPLER MEASUREMENTS Tricuspid valve ?? (Reference) Regurg peak monae ?? 200 cm/s RV-RA peak gradient ?? 16 mmHg Pulmonic valve ?? (Reference) Regurg peak jet monae ?? 145 cm/s Legend: Predicted normals (shown in italics) are given as mean ?? 2 SD Asterisk (*) dowell values outside the specified normal range. System measurement tables MM %FS: 39.3 % Ao Diam: 35 mm EDV(Teich): 179.8 ml EF(Teich): 68.9 % ESV(Teich): 55.8 ml IVSd: 6.7 mm IVSs: 13.5 mm LA Diam: 35 mm LA/Ao: 1 LVIDd: 60 mm LVIDs: 36.4 mm LVPWd: 9.4 mm LVPWs: 18.2 mm LVd Mass: 221.1 g LVd Mass (ASE): 188.4 g LVd Mass Ind (ASE): 63.6 g/m2 LVd Mass Index: 74.7 g/m2 LVs Mass: 264 g LVs Mass (ASE): 222.7 g LVs Mass Ind (ASE): 75.2 g/m2 LVs Mass Index: 89.2 g/m2 SV(Teich): 123.9 ml Procedure Note 12/21/2010 , Transthoracic Echocardiogram 2D, M-mode, Doppler, and Color Doppler Name: SHINE PATRICK MR #: [id number] Study date: 12/21/2010 Age: 15 years : 1995 Gender: Male Ht: 76.7 in / 194.8 cm Wt: 388.1 lb / 176.4 kg BSA: 2.96 m?? HR: BP: / age: FAUSTINA: Maternal age: STADIUM MANAGER: Ayah Petit MD PEDIATRIC ECHO IN SERVICE EDUCATOR: GILDA Cano Indications: Chest pain. History: Signs/symptoms include murmur. Procedure: The procedure was performed in the echo lab. Anatomic relationships: Visceral situs: normal. Left sided cardiac apex (levocardia). Normal atrial situs (atrial situs solitus). Concordant atrioventricular alignment. Ventricular d-loop. Normal infundibular anatomy. Concordant ventriculoarterial connection. Normally related great vessels. Systemic veins: SVC: The superior vena cava and left innominate vein appeared of normal caliber, with normal flow. IVC: The inferior vena cava was normal in size and course. IVC Doppler: The flow pattern was normal. Pulmonary veins: The pulmonary veins drained normally to the left atrium. Doppler: Doppler flow pattern was normal in the pulmonary vein(s). Right atrium: Size was normal. Left atrium: Size was normal. Atrial septum: No defect or patent foramen ovale was identified. Tricuspid valve: The valve structure was normal. Doppler: The transtricuspid velocity was within the normal range. There was no evidence for tricuspid stenosis. There was trivial regurgitation. Mitral valve: Valve structure was normal. There is no mitral valve prolapse. Doppler: The transmitral velocity was within the normal range. There was no evidence for stenosis. There was no regurgitation. Right ventricle: The cavity size was normal. Wall thickness was normal. Systolic function was normal. RV outflow tract: There was no obstruction. Left ventricle: The cavity size was normal. Wall thickness was normal. Systolic function was normal. There were no regional wall motion abnormalities. Doppler: Left ventricular diastolic function parameters were normal. LV outflow tract: There was no outflow obstruction. Ventricular septum: Thickness was normal. The septum was intact. Pulmonic valve: Leaflets exhibited normal thickness and normal cuspal separation. Doppler: The transpulmonic velocity was within the normal range. There was trivial regurgitation. Aortic valve: The valve was trileaflet. Leaflets exhibited normal thickness and normal cuspal separation. Doppler: Transaortic velocity was within the normal range. There was no stenosis. There was no regurgitation. Pulmonary artery: The main pulmonary artery was normal, with normal-sized, confluent proximal branch pulmonary arteries. Aorta: There was a normal-sized aortic arch with normal brachiocephalic branching. The root was normal in size. The ascending aorta size was normal. Coronary arteries: The size and course of the left main, proximal left anterior descending, and proximal right coronary arteries were normal. Right coronary artery: Flow was normal. Left main coronary artery: Flow was normal. Left anterior descending: Flow was normal. Extracardiac shunting: No ductal shunt was detected by Doppler. Pericardium: There was no pericardial effusion. The pericardium was normal in appearance. Impressions: - Diagnoses: Normal intracardiac anatomy. Prepared and signed by Ayah Petit MD Signed 12/21/2010 17:05:15 DOPPLER MEASUREMENTS Tricuspid valve (Reference) Regurg peak monae 200 cm/s RV-RA peak gradient 16 mmHg Pulmonic valve (Reference) Regurg peak jet monae 145 cm/s Legend: Predicted normals (shown in italics) are given as mean ?? 2 SD Asterisk (*) dowell values outside the specified normal range. System measurement tables MM %FS: 39.3 % Ao Diam: 35 mm EDV(Teich): 179.8 ml EF(Teich): 68.9 % ESV(Teich): 55.8 ml IVSd: 6.7 mm IVSs: 13.5 mm LA Diam: 35 mm LA/Ao: 1 LVIDd: 60 mm LVIDs: 36.4 mm LVPWd: 9.4 mm LVPWs: 18.2 mm LVd Mass: 221.1 g LVd Mass (ASE): 188.4 g LVd Mass Ind (ASE): 63.6 g/m2 LVd Mass Index: 74.7 g/m2 LVs Mass: 264 g LVs Mass (ASE): 222.7 g LVs Mass Ind (ASE): 75.2 g/m2 LVs Mass Index: 89.2 g/m2 SV(Teich): 123.9 ml Jayme Petit MD ECHO ORDERABLES Performing Organization Address [facility] Co de Phone Number [facility] [address] [place] [address] * MICROALB/CREAT RATIO URINE RANDOM PANEL (07/06/2010 10:15 AM CDT) [facility] Microalbumin Urine <0.6 <1.7 mg/dl [facility] Creatinine Urine 330.79 No normal range established mg/dl [facility] Microalbumin/Cre atinine Ratio <1.814 SEE BELOW [facility] Comment: mcg/mg creatinine Normal <30 Microalb...30-300 Clinical alb...>=300 URINE / Unknown 07/06/2010 1 0:15 AM CDT 07/06/2010 10:34 AM CDT Vera Loyd MD LAB - URINE CHEMISTR Y ORDERABLES Performing Organization Address [facility] Co de Phone Number [facility] [address] [place] [address]. [place] [address] * (ABNORMAL) COMPREHENSIVE METABOLIC PANEL (07/06/2010 7:50 AM CDT) [facility] Sodium 143 137 - 145 mmol/L [facility] Potassium 4.3 3.5 - 5.1 mmol/L [facility] Chloride 106 98 - 107 mmol/L [facility] CO2 27.0 22 - 30 mmol/L [facility] Glucose 131(H) 70 - 106 mg/dl [facility] BUN 12.9 8 - 21 mg/dl [facility] Calcium 9.3 8.9 - 10.7 mg/dl [facility] Bilirubin Total 0.4(L) 0.6 - 1.4 mg/dl [facility] Protein Total 7.2 6.3 - 8.6 gm/dl [facility] Albumin 4.1 3.7 - 5.6 gm/dl [facility] ALT 28 10 - 40 Units/L [facility] AST 39 10 - 45 Units/L [facility] Alkaline Phosphatase 91 65 - 260 Units/L [facility] Creatinine 0.95 0.50 - 1.06 mg/dl [facility] BLOOD SPECIMEN / Unknown 07/06/2010 7:50 AM CDT 07/06/2010 7:50 AM CDT Vera Loyd MD LAB - CHEMISTRY JULIANNA MACKAY [facility] [place] [address] * PATHOLOGY REPORTS - HPF HISTORICAL (07/12/2009 9:01 AM CDT) 07/12/2009 9:01 AM CDT Narrative [facility] - 07/12/2009 9:01 AM CDT Micehlle Jiménez MD LAB - PATHOLOGY/C YTOLOGY ORDERABLES [facility] Care Teams Platform Stapler Relationship Specialty Start Date End Date Louann Russ APRN-CESAR [address] [place] [address] [place] [address] PCP - General 06/29/10
--- OUTSIDE RECORDS SUMMARY | 2024-12-17 05:51 | XMS_ITS | Encounter Summary ---
Author Organization [facility] Address [address] [place] [address] Care Team Providers Care Nursing Director Name Role Phone None, Provider MD Primary Care Provider Penelope walters Non-Staff, Provider Primary Care Provider Alyse juarez Encounter Details Date Type Department Care Team (Late st Contact Info) Description 11/20/2023 [employer] Message Enc [facility] Medical Group Multispecialty Care - [address], [address] [place] [address] [facility] Provider Results Social History Tobacco Use Types Packs/Day Years [...] Info) Description 03/09/2025 8:00 AM CDT Treatment [facility] [place] [address] Benji Brennan MD [address] [place] [address] 05/05/2025 7:40 AM CDT Telemedicine [facility] Medical [facility] Multispecialty Care - [address], [address] [place] [address] Benji Brennan MD [address] [place] [address] documented as of this encounter Visit Diagnoses Not on filedocumented in this encounter Additional Health Concerns Infection Onset Date Last Indicated Resolved Time COVID-19 Rule Out 09/23/2024 09/23/2024 09/24/2024 12:30 AM NEEDLE CONTROL CHENILLER MRSA Comment:10/20/24 +MRSA Left finger 10/20/2024 10/20/2024 Assessment Noted Time PHQ-9 Depression Total Score: 27 02/06/ 023 9:56 AM CDT documented as of this encounter Care Teams Nursing Director Relationship Specialty Start Date End Date None, Provider, MD PCP - General UNKNOWN PHYSICIAN SPECIALTY 03/05/23 04/16/24 Non-Staff, Provider PCP - General UNKNOWN PHYSICIAN SPECIALTY 04/17/24 documented as of this encounter
--- OUTSIDE RECORDS SUMMARY | 2024-12-17 05:51 | XMS_ITS | Encounter Summary ---
Author Organization [facility] Care Team Providers Care Kettle Fry Cook Operator Name Role Phone Abril [place] MD Primary Care Provider [phone] Encounter Details Date Type Department Care Team (Latest Contact Info) Description 05/23/2018 Orders Only [facility] CLINCONV ProviderArsalan MD [address] [place] [address] Social History Tobacco Use Types Packs/Day Years Used Date Smoking Tobacco: Former Smokeless Tobacco: Never Alcohol Use Standard Drinks/Week Comments Yes 0 (1 standard drink = 0.6 oz pur e alcohol) occasional Sex and Gender Information Value Date Recorded Sex Assigned at Not on file Legal Sex Male 8:44 PM CONTRACTING 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 us Historical Provider Final Res ult documented in this encounter Visit Diagnoses Not on filedocumented in this encounter Additional Health Concerns Infection Onset Date Last Indicated Resolved Time COVID: Suspected 08/14/2020 08/14/2020 08/14/2020 4:56 AM CDT Respiratory Infection (MARCUS), contact + droplet Comment:Automatically added due to negative COVID-19 result. 08/14/2020 08/14/2020 08/28/2020 3:0 5 AM CDT documented as of this encounter Care Teams Kettle Fry Cook Operator Relationship Specialty Start Date End Date Abril [place] MD [address] [facility] [address] [address] PCP - General 11/15/17 documented as of this encounter
--- OUTSIDE RECORDS SUMMARY | 2024-12-17 05:51 | XMS_ITS | Encounter Summary ---
Author Organization [facility] Address [address] [place] [address] Care Team Providers Care Laborer/Key Man Name Role Phone None, Provider MD Primary Care Provider Penelope walters Non-Staff, Provider Primary Care Provider Alyse juarez Encounter Details Date Type Department Care Team (Late st Contact Info) Description 04/11/2023 MyChart Message Enc [facility] Medical Group Multispecialty Care - [facility] [address], [address] [place] [address] Benji Brennan MD [address] [place] [address] Drivers form Social History Tobacco Use Types Packs/Day Years Used Date Smoking Tobacco: Former Cigarettes 0.3 11 0 12/2008 - 12/2019 Smokeless Tobacco: Never Comments:Patient reports occ [...] suspected to have Coronavirus/COVID-19? No / Unsure 03/27/2023 4:09 PM CDT documented as of this encounter Functional [...] R N Active documented in this encounter Progress Notes * Shabana Mcmillan MA - 04/11/2023 10:58 AM CDT Please advise documented in this encounter Plan of Treatment Upcoming Encounters Date Type Department Care Team (Late st Contact Info) Description 03/09/2025 8:00 AM CDT Treatment [facility] [place] [address] Benji Brennan MD [address] [place], [place] [id number] 05/05/2025 7:40 AM CDT Telemedicine [facility] Medical Group Multispecialty Care - [facility] [address], [address] [place] [address] Benji Brennan MD [address] [place] [address] documented as of this encounter Visit Diagnoses Not on filedocumented in this encounter Additional Health Concerns Infection Onset Date Last Indicated Resolved Time COVID-19 Rule Out 09/23/2024 09/23/2024 09/24/2024 12:30 AM HUMAN RESOURCES DESIGNATE MRSA Comment:10/20/24 +MRSA Left finger 10/20/2024 10/20/2024 Assessment Noted Time PHQ-9 Depression Total Score: 27 02/06/2 023 9:56 AM CDT documented as of this encounter Care Teams Laborer/Key Man Relationship Specialty Start Date End Date None, Provider, PCP - General UNKNOWN PHYSICIAN SPECIALTY 03/05/23 04/16/24 Non-Staff, Provider PCP - General UNKNOWN PHYSICIAN SPECIALTY 04/17/24 documented as of this encounter
--- OUTSIDE RECORDS SUMMARY | 2024-12-17 05:51 | XMS_ITS | Referral Summary ---
Author Organization [facility] Address [address] [facility] [place] [address] Care Team Providers Care Grey Roll Worker Name Role Phone Louann Russ BROADCAST OPERATIONS MANAGER-FENCE GATE ASSEMBLER Primary Care Provider + Source Comments [facility],non-owned Affiliates and Associated Physician Practices is amultiple site organization consisting of ambulatory clinics and hospital sitesin [place], [place], [place] and [place]. This disclosure is being madepursuant to the Care Everywhere program and may not contain all information available regarding this patient. Last updated 18.[facility] Allergies No known active allergies Medications * [...] Comments Blood Pressure 130/72 12/21/2010 10:16 AM LOWER SCHOOL MUSIC TEACHER Pulse 74 12/21/2010 10:16 AM LOWER SCHOOL MUSIC TEACHER Temperature - - Respiratory Rate 10 12/21/2010 10:1 6 AM LOWER SCHOOL MUSIC TEACHER Oxygen Saturation - - Inhaled Oxygen Concentration - - Weight 176.4 kg (388 lb 14.3 oz) 2010 10:16 AM LOWER SCHOOL MUSIC TEACHER Height 194.8 cm (6' 4.69 ) 12/21/2010 1 0:16 AM LOWER SCHOOL MUSIC TEACHER Body Mass Index 46.49 12/21/2010 10:16 AM LOWER SCHOOL MUSIC TEACHER Plan of Treatment Not on file Care Teams Grey Roll Worker Relationship Specialty Start Date End Date Louann Russ APRN-CNP [address] [place] [id number] PCP - General 06/29/10
--- OUTSIDE RECORDS SUMMARY | 2024-12-17 05:51 | XMS_ITS | Encounter Summary ---
Author Organization [facility] Address [address] [place] [address] Care Team Providers Care Maitre D Name Role Phone None, Provider MD Primary Care Provider Penelope walters Non-Staff, Provider Primary Care Provider Alyse juarez Encounter Details Date Type Department Care Team (Late st Contact Info) Description 02/15/2023 MyChart Message Enc [facility] Medical Group Multispecialty Care - [address], [address] [place] [address] Benji Brennan MD [address] [place] [address] Appointments Social History Tobacco Use Types Packs/Day Years [...] CDT Treatment [facility] [place] [address] Benji Brennan MD [address] [place] [address] 05/05/2025 7:40 AM CDT Telemedicine [facility] Medical Group Multispecialty Care - [address], [address] [place] [address] Benji Brennan MD [address] [place] [address] documented as of this encounter Visit Diagnoses Not on filedocumented in this encounter Additional Health Concerns Infection Onset Date Last Indicated Resolved Time COVID-19 Rule Out 03/27/2023 03/27/2023 03/27/2023 5:24 PM CDT COVID-19 Rule Out 09/23/2024 09/23/2024 09/24/2024 12:30 AM DOGGER MRSA Comment:10/20/24 +MRSA Left finger 10/20/2024 10/20/2024 Assessment Noted Time PHQ-9 Depression Total Score: 27 02/06/2 023 9:56 AM CDT documented as of this encounter Care Teams Maitre D Relationship Specialty Start Date End Date None, Provider, MD PCP - General UNKNOWN PHYSICIAN SPECIALTY 03/05/23 04/16/24 Non-Staff, Provider PCP - General UNKNOWN PHYSICIAN SPECIALTY 04/17/24 documented as of this encounter
--- OUTSIDE RECORDS SUMMARY | 2024-12-17 05:51 | XMS_ITS | Encounter Summary ---
Author Organization [facility] Facility Care Team Providers Care Bench Machine Operator Name Role Phone Mindi Smith MD Primary Care Provider Abril Winchester MD Primary Care Provider [phone] Mindi Smith MD Primary Care Provider Abril Winchester MD Primary Care Provider [phone] Encounter Details Date Type Department Care Team (Latest Contact Info) Description 10/12/2015 Orders Only [facility] CLINCONV ProviderArsalan MD [address] [place] [address] Social History Tobacco Use Types Packs/Day Years Used Date Smoking Tobacco: Never Sex and Gender Information Value Date Recorded Sex Assigned at Not on file 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 Historical Provider Final Res ult documented in this encounter Visit Diagnoses Not on filedocumented in this encounter Additional Health Concerns Infection Onset Date Last Indicated Resolved Time COVID: Suspected 08/14/2020 08/14/2020 08/14/2020 4:56 AM CDT Respiratory Infection (MARCUS), contact + droplet Comment:Automatically added due to negative COVID-19 result. 08/14/2020 08/14/2020 08/28/2020 3:0 5 AM CDT documented as of this encounter Care Teams Bench Machine Operator Relationship Specialty Start Date End Date Mindi Smith MD [address] [place] [address] PCP - General 09/05/17 09/13/17 Abril Winchester MD [address] [place] [address] PCP - General 09/14/17 09/20/17 Mindi Smith MD [address] [place] [address] PCP - General 09/21/17 11/14/17 Abril Winchester MD [address] [place] [address] PCP - General 11/15/17 documented as of this encounter
--- OUTSIDE RECORDS SUMMARY | 2024-12-17 05:51 | XMS_ITS | Encounter Summary ---
Author Organization [facility] Address [address] [place] [address] Care Team Providers Care Engagement Executive Name Role Phone Mino Clemons DO Primary Care Provider [phone] Ary Conner DO Primary Care Provider [phone] None, Provider MD Primary Care Provider Unavaila ble Non-Staff, Provider Primary Care Provider Alyse juarez Encounter Details Date Type Department Care Team (Late st Contact Info) Description 02/27/2020 [email or web address] Message Enc [facility] Medical Group Family Medicine - [place] [address], [address] [place] [phone] Mino Clemons, DO [address] [place] [address] Social History Tobacco Use Types Packs/Day Years [...] Info) Description 03/09/2025 8:00 AM CDT Treatment [facility] [place] [address] Benji Brennan MD [address] [place] [address] 05/05/2025 7:40 AM CDT Telemedicine [facility] Medical Group Multispecialty Care - [facility] [address] [facility], [address] [place] [address] Benji Brennan MD [address] [place] [address] documented as of this encounter Visit Diagnoses Not on filedocumented in this encounter Additional Health Concerns Infection Onset Date Last Indicated Resolved Time COVID-19 Rule Out 08/28/2020 08/28/2020 08/29/2020 11:17 AM CDT COVID-19 Rule Out 12/22/2020 12/22/2020 12/23/2020 11:06 AM DRAW BENCH OPERATOR HELPER COVID-19 Rule Out 10/27/2022 10/27/2022 10/27/2022 2:38 PM DRAW BENCH OPERATOR HELPER COVID-19 Rule Out 03/27/2023 03/27/2023 03/27/2023 5:24 PM CDT COVID-19 Rule Out 09/23/2024 09/23/2024 09/24/2024 12:30 AM DRAW BENCH OPERATOR HELPER MRSA Comment:10/20/24 +MRSA Left finger 10/20/2024 10/20/2024 Assessment Noted Time PHQ-9 Depression Total Score: 25 020 1:14 PM DRAW BENCH OPERATOR HELPER documented as of this encounter Care Teams Engagement Executive Relationship Specialty Start Date End Date Mino Clemons DO PCP - General FAMILY PRACTICE 11/17/19 10/31/22 Ary Conner DO [address] [place] [address] PCP - General FAMILY PRACTICE 12/07/22 02/06/23 None, Provider, PCP - General UNKNOWN PHYSICIAN SPECIALTY 03/05/23 04/16/24 Non-Staff, Provider PCP - General UNKNOWN PHYSICIAN SPECIALTY 04/17/24 documented as of this encounter
--- OUTSIDE RECORDS SUMMARY | 2024-12-17 05:51 | XMS_ITS | Referral Summary ---
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 Gender Identity Not on file Sexual Orientation Not on file Last Filed Vital Signs Vital Sign Reading Time Taken Comments Blood Pressure 120/80 09/12/2024 8:32 AM CDT Pulse 88 08/13/2020 11:36 PM CDT Temperature 36.8 ??C (98.3 ??F) 08/13/2020 1 1:36 PM CDT Respiratory Rate 18 12/26/2018 2:30 PM EXPERIMENTAL ELECTRONICS DEVELOPER Oxygen Saturation 96% 08/13/2020 11: 36 PM CDT Inhaled Oxygen Concentration - - Weight 139.6 kg (307 lb 12.8 oz) 09/12/2024 8:32 AM CDT Height 198.1 cm (6' 6 ) 09/12/2024 8:32 AM CDT Body Mass Index 35.57 09/12/2024 8:32 AM CDT Plan of Treatment Not on file Procedures Procedure Name Priority Date/Time Associated Diagnosis [...] PM CDT) Hep A IgM Nonreactive Nonreactive [facility] Comment: Interpretive Data If test is reported as GRAYZONE, new sample should be drawn in two weeks for testing. Current interpretive data was last revised on 2016. Hep B core IgM Nonreactive Nonreactive [facility] Comment: Interpretive Data If test is reported as GRAYZONE, new sample should be drawn for testing. Current interpretive data was last revised on 2016. Hep C Ab Nonreactive Nonreactive [facility] Comment: Interpretive Data Positive and greyzone results should be confirmed by a molecular method. If positive or greyzone, a second separately collected sample should be submitted for Hepatitis C Virus RNA. Detection and Quantitation by Real-Time Reverse Facility Maintenance Manager-PCR.Current Interpretive data was last revised on 2017. HepBsAg Nonreactive Nonreactive [facility] Blood specimen (specimen) 09/14/2017 8:48 PM CDT 09/14/2017 9:03 PM CDT Donavan Borja MD PhD LAB MICROBIOLOGY - GENE RAL ORDERABLES Edited Result - Final [facility] Department [place] [address] from Last 3 Months or Most Recently Relevant to Health Maintenance Insurance [facility] CHOICE [employer]US [employer] Care Teams Assistant Professor Of Archaeology Relationship Specialty Start Date End Date Abril Winchester MD [address] [place] [address] PCP - General 11/15/17
--- OUTSIDE RECORDS SUMMARY | 2024-12-17 05:51 | XMS_ITS | Encounter Summary ---
Author Organization [facility] Address [address] [place] [address] Care Team Providers Care Fashion Show Director Name Role Phone Mino Clemons DO Primary Care Provider [phone] Ary Conner DO Primary Care Provider [phone] None, Provider MD Primary Care Provider Unavaila ble Non-Staff, Provider Primary Care Provider Alyse juarez Encounter Details Date Type Department Care Team (Late st Contact Info) Description 06/10/2020 [employer] Message Enc [facility] Medical Group Family Medicine - [place] [address] [facility] [address], [address] [place] [address] Ivon, [facility] Provider appointment Social History Tobacco Use Types Packs/Day Years [...] Description 03/09/2025 8:[address] [facility] [place] [address] Benji Brennan MD [address] [place] [address] 05/05/2025 7:40 AM CDT Telemedicine [facility] Medical Group Multispecialty Care - [address], [address] [place] [address] Benji Brennan MD [address] [place] [address] documented as of this encounter Visit Diagnoses Not on filedocumented in this encounter Additional Health Concerns Infection Onset Date Last Indicated Resolved Time COVID-19 Rule Out 08/28/2020 08/28/2020 08/29/2020 11:17 AM CDT COVID-19 Rule Out 12/22/2020 12/22/2020 12/23/2020 11:06 AM SENIOR OPERATOR COVID-19 Rule Out 10/27/2022 10/27/2022 10/27/2022 2:38 PM SENIOR OPERATOR COVID-19 Rule Out 03/27/2023 03/27/2023 03/27/2023 5:24 PM CDT COVID-19 Rule Out 09/23/2024 09/23/2024 09/24/2024 12:30 AM SENIOR OPERATOR MRSA Comment:10/20/24 +MRSA Left finger 10/20/2024 10/20/2024 Assessment Noted Time PHQ-9 Depression Total Score: 25 020 1:14 PM SENIOR OPERATOR documented as of this encounter Care Teams Fashion Show Director Relationship Specialty Start Date End Date Mino Clemons DO PCP - General FAMILY PRACTICE 11/17/19 10/31/22 Ary Conner DO [address] [place] [address] PCP - General FAMILY PRACTICE 12/07/22 02/06/23 None, Provider, MD PCP - General UNKNOWN PHYSICIAN SPECIALTY 03/05/23 04/16/24 Non-Staff, Provider PCP - General UNKNOWN PHYSICIAN SPECIALTY 04/17/24 documented as of this encounter
--- OUTSIDE RECORDS SUMMARY | 2024-12-17 05:51 | XMS_ITS | Encounter Summary ---
Author Organization [facility] Address [address] [place] [address] Care Team Providers Care Intern Brand Name Role Phone None, Provider MD Primary Care Provider Penelope walters Non-Staff, Provider Primary Care Provider Alyse juarez Encounter Details Date Type Department Care Team (Late st Contact Info) Description 03/07/2023 MyChart Message Enc [facility] Medical Group Multispecialty Care - [facility] [address] [facility] [address], [address] [place] [address] Benji Brennan MD [address] [place] [address] [place] Social History Tobacco Use Types Packs/Day Years [...] suspected to have Coronavirus/COVID-19? No / Unsure 03/05/2023 7:23 AM CDT documented as of this encounter [...] Treatment [facility] [place] [address] Benji Brennan MD [address] [place] [address] 05/05/2025 7:40 AM CDT Telemedicine [facility] Medical Group Multispecialty Care - [address], [address] [place] [address] Benji Brennan MD [address] [place] [address] documented as of this encounter Visit Diagnoses Not on filedocumented in this encounter Additional Health Concerns Infection Onset Date Last Indicated Resolved Time COVID-19 Rule Out 03/27/2023 03/27/2023 03/27/2023 5:24 PM CDT COVID-19 Rule Out 09/23/2024 09/23/2024 09/24/2024 12:30 AM ERGONOMICS TECHNICIAN MRSA Comment:10/20/24 +MRSA Left finger 10/20/2024 10/20/2024 Assessment Noted Time PHQ-9 Depression Total Score: 27 02/06/2 023 9:56 AM CDT documented as of this encounter Care Teams Intern Brand Relationship Specialty Start Date End Date None, Provider, MD PCP - General UNKNOWN PHYSICIAN SPECIALTY 03/05/23 04/16/24 Non-Staff, Provider PCP - General UNKNOWN PHYSICIAN SPECIALTY 04/17/24 documented as of this encounter
--- OUTSIDE RECORDS SUMMARY | 2024-12-17 05:51 | XMS_ITS | Encounter Summary ---
Author Organization [facility] Address [address] [place] [address] Care Team Providers Care Sprayer Automatic Spray Machine Name Role Phone Mino Clemons DO Primary Care Provider [phone] Ary Conner DO Primary Care Provider [phone] None, Provider MD Primary Care Provider Unavaila ble Non-Staff, Provider Primary Care Provider Alyse juarez Encounter Details Date Type Department Care Team (Late st Contact Info) Description 07/19/2022 [employer] Message Enc [facility] Medical Group Family Medicine - [place] [address] [place] [phone] Mino Clemons, DO [address] [place] [address] Back ache Social History Tobacco Use Types Packs/Day Years Used Date Smoking Tobacco: Former Cigarettes 0.3 11 0 11/2008 - 11/2019 Smokeless Tobacco: Never Comments:The provider can pr ovide you with more information about quitting. Alcohol Use Standard Drinks/Week Comments Yes 0 (1 standard drink = 0.6 oz pur e alcohol) social PHQ-2 Answer Date Recorded PHQ-2 Score - If the patient scores above 3, please move on to questions 3-9 3 07/29/2021 Sex and Gender Information Value Date Recorded [...] Info) Description 03/09/2025 8:00 AM CDT Treatment [facility] [place] [address] Benji Brennan MD [address] [place] [address] 05/05/2025 7:40 AM CDT Telemedicine [facility] Medical Group Multispecialty Care - [address], [address] [place] [address] Benji Brennan MD [address] [place] [address] documented as of this encounter Visit Diagnoses Not on filedocumented in this encounter Additional Health Concerns Infection Onset Date Last Indicated Resolved Time COVID-19 Rule Out 10/27/2022 10/27/2022 10/27/2022 2:38 PM PUBLIC HEALTH AIDES TEACHER COVID-19 Rule Out 03/27/2023 03/27/2023 03/27/2023 5:24 PM CDT COVID-19 Rule Out 09/23/2024 09/23/2024 09/24/2024 12:30 AM PUBLIC HEALTH AIDES TEACHER MRSA Comment:10/20/24 +MRSA Left finger 10/20/2024 10/20/2024 Assessment Noted Time PHQ-9 Depression Total Score: 021 9:41 AM CDT documented as of this encounter Care Teams Sprayer Automatic Spray Machine Relationship Specialty Start Date End Date Mino Clemons DO PCP - General FAMILY PRACTICE 11/17/19 10/31/22 Ary Conner DO [address] [place] [address] PCP - General FAMILY PRACTICE 12/07/22 02/06/23 None, Provider, PCP - General UNKNOWN PHYSICIAN SPECIALTY 03/05/23 04/16/24 Non-Staff, Provider PCP - General UNKNOWN PHYSICIAN SPECIALTY 04/17/24 documented as of this encounter
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
[2024-12-17 07:44] LABS: Influenza A QL RT-PCR Negative (Negative); Influenza B QL RT-PCR Negative (Negative); RSV RNA, RT-PCR Negative (Negative); SARS-CoV-2 RNA PCR Negative (Negative)
[2024-12-17 09:41] VITALS: BP 134/78; PULSE 65; RESP 16; TEMP 36.3; O2SAT 100
[2024-12-17] MEDS: MECLIZINE HCL 25 MG TABLET PO (11:48)
[2024-12-17] MEDS: SODIUM CHLORIDE 0.9% IV 1,000 ML 999 ML IV CONT (11:48)
--- NOTE | 2024-12-17 11:54 | PC.NURSE ---
pt aware of need of urine sample, pt states he does not need to use the restroom at this time.
[2024-12-17 12:02] LABS: Basophils Absolute Auto 0.1 K/mm3 (0.0-0.1); Basophils Percent Auto 1.4 % (0.2-1.2); Eosinophils Absolute Auto 0.2 K/mm3 (0-0.3); Eosinophils Percent Auto 4.3 % (0-4.4); Hematocrit 44.4 % (42.0-52.0); Hemoglobin 14.7 g/dL (14.0-18.0); Immature Granulocyte Absolute 0.01 K/mm3 (0.00-0.031); Immature Granulocyte Percent A 0.2 % (0-0.5); Lymphocytes Percent Auto 44.7 % (18.3-44.2); Mean Corpuscular HGB Conc 33.1 g/dl (32-36); Mean Corpuscular Hemoglobin 29.7 pg (26-34); Mean Corpuscular Volume 89.7 fl (80-100); Mean Platelet Volume 11.4 fl (7.4-10.4); Monocytes Absolute Auto 0.6 K/mm3 (0.1-0.6); Monocytes Percent Auto 10.4 % (2.6-8.5); Neutrophils Absolute Auto 2.2 K/mm3 (1.3-6.7); Platelet Count Result 172 k/mm3 (150-375); Red Blood Count 4.95 M/mm3 (4.6-6.20); Red Cell Distribution Width 13.2 % (11.5-14.5); White Blood Count 5.6 K/mm3 (4.5-10.0)
[2024-12-17 13:05] LABS: Add Urine Microscopic? NO; Appearance Urine Clear (Clear); Bilirubin Urine Negative (Negative); Blood Urine Negative (Negative); Color Urine Yellow (Yellow); Glucose Urine UA Negative (Negative); Ketones Urine Negative (Negative); Leukocyte Esterase Ur Negative LEU/UL (Negative); Nitrate Urine Negative (Negative); Protein Urine Negative (Negative); Urobilinogen Urine 0.2 mg/dL (<2.0); pH Urine 5.5 (5.0-9.0)
[2024-12-17 14:25] LABS: Alanine Aminotransferase 43 U/L (6-50); Albumin Level 4.4 g/dL (3.5-5.1); Alkaline Phosphatase 62 U/L (38-126); Anion Gap 11 mmol/L (4-12); Aspartate Amino Transferase 36 U/L (17-59); Bilirubin,Total 0.8 mg/dL (0.2-1.3); Blood Urea Nitrogen 13 mg/dL (9-20); Calcium 9.4 mg/dL (8.4-10.2); Carbon Dioxide 25 mmol/L (22-30); Chloride 102 mmol/L (98-107); Estimated CRCL calculation 170 ml/min; Estimated Glomerular Filt Rate > 60; Glucose 167 mg/dL (65-110); Potassium 4.6 mmol/L (3.4-5.0); Sodium 138 mmol/L (137-145)
--- NOTE | 2024-12-17 14:48 | ED_ITS ---
HPI - General Adult General Chief complaint: Headache Stated complaint: headache, dizziness since midnight Time Seen by Provider: 12/17/24 11:03 History of Present Illness HPI narrative: patient is a 29-year-old gentleman who presents emergency department with chief complaint of headache and dizziness since midnight the patient does report that symptoms are doing much better the patient reports that he had an episode of diarrhea today as well the patient's reports that he has history of MS and reports that has been well controlled the patient reports no problems breathing denies a general muscle weakness Related Data Allergies Allergy/AdvReac Type Severity Reaction Status Date / Time No Known Allergies Allergy Verified 12/17/24 05:49 Review of Systems 2 Review of Systems: A 10 system review of systems was completed on the patient and is negative except for what is stated in the HPI. Nursing and ancillary documentation was reviewed. [facility] Past Medical History Medical History Multiple sclerosis Diabetes type 2, uncontrolled Surgical History Surgical History No pertinent past surgical history Social History Social History Smoking status: Current every day smoker Alcohol intake: current Exam 2 Narrative: GENERAL: Well-appearing, well-nourished, and in no acute distress. HEAD: Normocephalic, atraumatic. EYES: PERRLA and EOMI. ENT: Nares clear, no rhinorrhea or epistaxis. Mucous membranes moist. NECK: Supple. CHEST: Clear to auscultation. No respiratory distress. HEART: Regular rate and rhythm. No murmur heard. Normal peripheral pulses. ABDOMEN: Soft, nontender, nondistended, normal active bowel sounds. EXTREMITIES: Normal range of motion. No edema. SKIN: Warm, dry, no rash. NEURO: No focal deficits. Alert and oriented x3. PSYCH: Normal mood and affect. Course Vital Signs Vital signs: Vital Signs Temperature 36.4 C 12/17/24 05:50 Pulse Rate 69 12/17/24 05:50 Respiratory Rate 18 12/17/24 05:50 Blood Pressure 101/79 12/17/24 05:50 Pulse Oximetry 100 12/17/24 05:50 Oxygen Delivery Room Air 02/05/25 05:50 Temperature 36.3 C L 12/17/24 09:41 Pulse Rate 65 12/17/24 09:41 Respiratory Rate 16 12/17/24 09:41 Blood Pressure 134/78 12/17/24 09:41 Pulse Oximetry 100 12/17/24 09:41 Oxygen Delivery Room Air 12/17/24 05:50 Medical Decision Making MDM Narrative Medical decision making narrative: differential diagnosis includes electrolyte abnormality, dehydration, vertigo, patient shows no focal neurological deficit. Patient is negative for COVID flu and RSV electrolytes are within normal limits urinalysis showed no evidence UTI. The patient was given a L of normal saline and given a dose of meclizine the patient be discharged home to follow-up with primary care provider patient should also follow up with his neurologist Vital Signs Vital Signs: Vital Signs Temperature 36.4 C 12/17/24 05:50 Pulse Rate 69 12/17/24 05:50 Respiratory Rate 18 12/17/24 05:50 Blood Pressure 101/79 12/17/24 05:50 Pulse Oximetry 100 12/17/24 05:50 Oxygen Delivery Room Air 12/17/24 05:50 Temperature 36.3 C L 12/17/24 09:41 Pulse Rate 65 12/17/24 09:41 Respiratory Rate 16 12/17/24 09:41 Blood Pressure 134/78 12/17/24 09:41 Pulse Oximetry 100 12/17/24 09:41 Oxygen Delivery Room Air 12/17/24 05:50 Lab Data 12/17/24 11:51 12/17/24 12:43 Labs: Lab Results 12/17/24 12/17/24 12/17/24 Range/Units 07:01 11:51 12:43 WBC 5.6 (4.5-10.0) K/mm3 RBC 4.95 (4.6-6.20) M/mm3 Hgb 14.7 (14.0-18.0) g/dL Hct 44.4 (42.0-52.0) % MCV 89.7 (80-100) fl MCH 29.7 (26-34) pg MCHC 33.1 (32-36) g/dl RDW 13.2 (11.5-14.5) % Plt Count 172 (150-375) k/mm3 MPV 11.4 H (7.4-10.4) fl Immature Gran % (Auto) 0.2 (0-0.5) % Neut % (Auto) 39.0 L (45.5-73.1) % Lymph % (Auto) 44.7 H (18.3-44.2) % Mcculloch % (Auto) 10.4 H (2.6-8.5) % Eos % (Auto) 4.3 (0-4.4) % Baso % (Auto) 1.4 H (0.2-1.2) % Lymph # (Auto) 2.50 (0.9-3.2) K/mm3 Mcculloch # (Auto) 0.6 (0.1-0.6) K/mm3 Eos # (Auto) 0.2 (0-0.3) K/mm3 Baso # (Auto) 0.1 (0.0-0.1) K/mm3 Abs Immat Gran (auto) 0.01 (0.00-0.031) K/mm3 Absolute Neuts (auto) 2.2 (1.3-6.7) K/mm3 Absolute Nucleated RBC 0.000 (0.0-0.012) K/mm3 Nucleated RBC % 0.0 (0.0-0.2) % Sodium 138 (137-145) mmol/L Potassium 4.6 (3.4-5.0) mmol/L Chloride 102 (98-107) mmol/L Carbon Dioxide 25 (22-30) mmol/L Anion Gap 11 (4-12) mmol/L BUN 13 D (9-20) mg/dL Creatinine 0.88 (0.7-1.3) mg/dL Estim Creat Clear Calc 170 ml/min Estimated GFR > 60 (59 - ) Glucose 167 H (65-110) mg/dL Calcium 9.4 (8.4-10.2) mg/dL Magnesium 2.0 (1.6-2.3) mg/dL Total Bilirubin 0.8 (0.2-1.3) mg/dL AST 36 (17-59) U/L ALT 43 (6-50) U/L Alkaline Phosphatase 62 (38-126) U/L Total Protein 7.0 (6.3-8.2) g/dL Albumin 4.4 (3.5-5.1) g/dL Urine Color (Yellow) Urine Appearance (Clear) Urine pH (5.0-9.0) Ur Specific [place] (1.001-1.035) Urine Protein (Negative) mg/dL Urine Glucose (UA) (Negative) mg/dL Urine Ketones (Negative) mg/dL Ur Blood (Man) (Negative) Urine Nitrate (Negative) Urine Bilirubin (Negative) Urine Urobilinogen (<2.0) mg/dL Leukocyte Esterase Rfl (Negative) SHIVANI/UL Influenza A (RT-PCR) Negative (Negative) Influenza B (RT-PCR) Negative (Negative) RSV (RT-PCR) Negative (Negative) SARS-CoV-2 RNA (RT-PCR) Negative (Negative) 12/17/24 Range/Units 12:53 WBC (4.5-10.0) K/mm3 RBC (4.6-6.20) M/mm3 Hgb (14.0-18.0) g/dL Hct (42.0-52.0) % MCV (80-100) fl MCH (26-34) pg MCHC (32-36) g/dl RDW (11.5-14.5) % Plt Count (150-375) k/mm3 MPV (7.4-10.4) fl Immature Gran % (Auto) (0-0.5) % Neut % (Auto) (45.5-73.1) % Lymph % (Auto) (18.3-44.2) % Mcculloch % (Auto) (2.6-8.5) % Eos % (Auto) (0-4.4) % Baso % (Auto) (0.2-1.2) % Lymph # (Auto) (0.9-3.2) K/mm3 Mcculloch # (Auto) (0.1-0.6) K/mm3 Eos # (Auto) (0-0.3) K/mm3 Baso # (Auto) (0.0-0.1) K/mm3 Abs Immat Gran (auto) (0.00-0.031) K/mm3 Absolute Neuts (auto) (1.3-6.7) K/mm3 Absolute Nucleated RBC (0.0-0.012) K/mm3 Nucleated RBC % (0.0-0.2) % Sodium (137-145) mmol/L Potassium (3.4-5.0) mmol/L Chloride (98-107) mmol/L Carbon Dioxide (22-30) mmol/L Anion Gap (4-12) mmol/L BUN (9-20) mg/dL Creatinine (0.7-1.3) mg/dL Estim Creat Clear Calc ml/min Estimated GFR (59 - ) Glucose (65-110) mg/dL Calcium (8.4-10.2) mg/dL Magnesium (1.6-2.3) mg/dL Total Bilirubin (0.2-1.3) mg/dL AST (17-59) U/L ALT (6-50) U/L Alkaline Phosphatase (38-126) U/L Total Protein (6.3-8.2) g/dL Albumin (3.5-5.1) g/dL Urine Color Yellow (Yellow) Urine Appearance Clear (Clear) Urine pH 5.5 (5.0-9.0) Ur Specific [place] 1.010 (1.001-1.035) Urine Protein Negative (Negative) mg/dL Urine Glucose (UA) Negative (Negative) mg/dL Urine Ketones Negative (Negative) mg/dL Ur Blood (Man) Negative (Negative) Urine Nitrate Negative (Negative) Urine Bilirubin Negative (Negative) Urine Urobilinogen 0.2 (<2.0) mg/dL Leukocyte Esterase Rfl Negative (Negative) SHIVANI/UL Influenza A (RT-PCR) (Negative) Influenza B (RT-PCR) (Negative) RSV (RT-PCR) (Negative) SARS-CoV-2 RNA (RT-PCR) (Negative) Discharge Plan Discharge Clinical Impression: Dizziness, Vertigo Patient Disposition: Home, Self-Care Condition: Stable Instructions: Antibiotic Form, Vertigo (ED), Dizziness (ED) Additional Instructions: please follow-up with your primary care provider/neurologist as soon as possible. If your symptoms worsen please return to the emergency department. Patient Language: Namibian Prescriptions: New meclizine [Antivert] 50 mg tablet 50 mg PO BID PRN (Reason: dizziness) 10 Days Qty: 20 0RF No Action sodium chloride [Stoddard Nasal] 0.65 % aerosol,spray 2 spray NASAL Q2H PRN (Reason: dry nasal passages) Qty: 30 0RF Follow-up/Referrals: UNKNOWN,DOCTOR [Primary Care Provider] - Selvin Scott MD [Physician] - Time of Disposition: 14:55
[2024-12-17 14:55] VITALS: BP 125/91; PULSE 55; RESP 18; O2SAT 100
== END 2024-12-17 15:17 | disposition home or self-care (01) ==
PROVIDERS: Student in an Organized Health Care Education/Training Program; Emergency Provider Emergency Medicine
DX: R42 Dizziness and giddiness (principal); E11.9 Type 2 diabetes mellitus without complications; G35 Multiple sclerosis; F17.200 Nicotine dependence, unspecified, uncomplicated; Z20.822 Contact with and (suspected) exposure to COVID-19
CPT/HCPCS: 36415; 80053; 81003; 83735; 85025; 87637; 96360; 99283; A9270; J7030